=== PATIENT | male | born 1945 | race Caucasian/White ===

== ENCOUNTER → 2020-05-26 01:38 | Outpatient (CLI) | payer MEDICARE, SELFPAY ==
[2020-05-26 20:12] LABS: SARS-CoV-2 RNA PCR Negative
== END ==
PROVIDERS: PCP Family Medicine; Visit Provider Internal Medicine Gastroenterology
DX: Z01.812 Encounter for preprocedural laboratory examination (principal); Z20.822 Contact with and (suspected) exposure to COVID-19
CPT/HCPCS: C9803; U0003; U0005

== ENCOUNTER 2020-05-29 00:50 | Day surgery (SDC) | payer MEDICARE, SELFPAY ==
[2020-05-15 11:58] VITALS: BMI 22.7
--- NOTE | 2020-05-29 10:10 | WPDANESEPPF ---
Anes - Initial Pre Proc Eval Procedure: Operation Date: 05/29/20 13:00 Proposed Procedures p Esophagogastroduodenoscopy - Willian Bob MD Date/Time: 05/29/20 10:10 Surgeon: Willian Bob MD Pre Op Diagnosis: dysphagia Patient Data Age: 74 Gender: M Height: 1.78 m Weight: 72 kg Allergies Allergy/AdvReac Type Severity Reaction Status Date / Time No Known Allergies Allergy Verified 05/29/20 11:49 Home Medications Medication Instructions Recorded Confirmed Type lisinopril 10 mg tablet 10 mg PO DAILY #30 tablet 11/29/19 05/15/20 Rx metoprolol succinate 25 mg 25 mg PO DAILY 04/01/20 05/15/20 History tablet,extended release 24 hr azelastine 205.5 mcg (0.15 %) 1 spray INTRANASAL BID #30 ml 04/11/20 05/15/20 Rx nasal spray ascorbic acid (vitamin C) 500 mg PO DAILY 05/15/20 05/15/20 History aspirin [Aspirin Child] 81 mg PO DAILY 05/15/20 05/15/20 History atorvastatin 40 mg PO HS 05/15/20 05/15/20 History fluoxetine 20 mg PO DAILY 05/15/20 05/15/20 History tadalafil [Cialis] 15 mg PO DAILY PRN 05/15/20 05/15/20 History tamsulosin [Flomax] 0.4 mg PO DAILY 05/15/20 05/15/20 History vit C-vit Q9-Y-pick-elderberry 2 tablet PO DAILY 05/15/20 05/15/20 History [Airborne Vits Zinc Elderberry] sildenafil (pulm.hypertension) 20 See Rx Instructions PO ONCE #90 05/22/20 Rx mg tablet tablet Patient hx anesthesia problems: none Family hx anesthesia problems: none PMFSH Past Medical History Medical History (Updated 05/29/20 @ 10:12 by Edvin Rausch MD) Abnormal fasting glucose Anemia CAD (coronary artery disease) Cardiomyopathy ef 38% Cellulitis of right forearm Chronic anticoagulation Chronic anxiety Chronic atrial fibrillation Chronic bilateral low back pain with bilateral sciatica Chronic neck pain Coronary artery disease involving [place] coronary artery of [place] heart without angina pectoris CVA (cerebrovascular accident due to intracerebral hemorrhage) Dysphagia Essential (primary) hypertension HLD (hyperlipidemia) HTN (hypertension) Hx TIA/stroke w/o resid Mixed hyperlipidemia Peripheral polyneuropathy Seasonal allergic rhinitis TIA (transient ischemic attack) Traumatic hematoma of right forearm Surgical History Surgical History (Updated 05/10/19 @ 09:53 by Vishnu Bar MD) H/O cardiac catheterization History of aortic valve replacement History of heart artery stent Family History Family History (System 04/09/19 @ 11:49 by Loretta Cottrell) Mother Diabetes mellitus Family history of cardiovascular disease, Onset Age: 59 Father Cerebrovascular accident, Onset Age: 70 Social History Social History Smoking packs per day: 2 Smoking cigarettes per day: 40.0 Years smoked: 20 Smoking pack-years: 40.00 Smoking status: Former smoker Tobacco type: cigarettes Alcohol intake: current Substance use: never Substance use type: does not use Living arrangements: with family Gender identity (if verbalized by the patient): Male Spiritual care concerns: No Anes - Eval Final PreProcedure Day of Procedure 05/29/20 10:10 Patient weight: normal Heart: regular rate and rhythm Lungs: clear to auscultation and normal air movement Airway: Mallampati scale class II Neurological: alert and oriented Last oral intake: >/= 8 hours ASA classification: IV Emergent: no Anesthetic plan: proceed Anesthesia type and monitoring: general GIVS Informed Consent: The patient's anesthetic plan and its attendant risks and benefits were discussed with the patient/family/POA. Questions were solicited and answers provided to the satisfaction of the patient/family/POA.
[2020-05-29] MEDS: LACTATED RINGERS 1,000 ML 150 ML IV CONT (11:56)
[2020-05-29] MEDS: AMPICILLIN 2 GM/NS 100 ML 2 GM/100 ML BAG IVPB (11:57)
[2020-05-29 12:01] VITALS: BP 139/72; PULSE 64; RESP 16; TEMP 36.2; O2SAT 97; BMI 22.7
[2020-05-29] MEDS: GENTAMICIN 80MG/SOD CHL 50 ML 80 MG/50 ML BAG 100 MG IVPB (12:53)
--- NOTE | 2020-05-29 13:21 | PM.HPGS ---
History of Present Illness History of Present Illness Consent: Risks, benefits, and alternatives have been discussed and questions answered. Patient agrees to proceed with procedure. Chief complaint: dysphagia Narrative: Kevin Dykes is a 74 year old male with dysphagia, never had egd Review of Systems Constitutional: Constitutional: Denies headache(s) and Denies weakness Eyes: Eyes: Denies blurry vision ENT: Reports Normal hearing present, Denies headache(s) and Denies neck pain Cardiovascular: Cardiovascular: Denies chest pain and Denies dyspnea Respiratory: Respiratory: Denies dyspnea Gastrointestinal: Gastrointestinal: Reports no additional gastrointestinal complaints Genitourinary: Genitourinary: Denies dysuria Musculoskeletal: Musculoskeletal: Denies neck pain Integumentary/Breasts: Skin/Breast: Denies dry skin Neurologic: Reports Normal hearing present, Denies headache(s) and Denies weakness Psychiatric: Psychiatric: Denies anxiety Endocrine: Endocrine: Denies change in body appearance Hematologic/Lymphatic: Hematologic/Lymphatic: Denies easy bleeding Allergic/Immunologic: Allergic/Immunologic: Denies urticaria PMFSH Past Medical History Medical History (Updated 05/29/20 @ 10:12 by Edvin Rausch MD) Abnormal fasting glucose Anemia CAD (coronary artery disease) Cardiomyopathy ef 38% Cellulitis of right forearm Chronic anticoagulation Chronic anxiety Chronic atrial fibrillation Chronic bilateral low back pain with bilateral sciatica Chronic neck pain Coronary artery disease involving [place] coronary artery of [place] heart without angina pectoris CVA (cerebrovascular accident due to intracerebral hemorrhage) Dysphagia Essential (primary) hypertension HLD (hyperlipidemia) HTN (hypertension) Hx TIA/stroke w/o resid Mixed hyperlipidemia Peripheral polyneuropathy Seasonal allergic rhinitis TIA (transient ischemic attack) Traumatic hematoma of right forearm Surgical History Surgical History (Updated 05/10/19 @ 09:53 by Vishnu Bar MD) H/O cardiac catheterization History of aortic valve replacement History of heart artery stent Family History Family History (System 04/09/19 @ 11:49 by Loretta Cottrell) Mother Diabetes mellitus Family history of cardiovascular disease, Onset Age: 59 Father Cerebrovascular accident, Onset Age: 70 Social History Social History Smoking packs per day: 2 Smoking cigarettes per day: 40.0 Years smoked: 20 Smoking pack-years: 40.00 Smoking status: Former smoker Tobacco type: cigarettes Alcohol intake: current Substance use: never Substance use type: does not use Living arrangements: with family Gender identity (if verbalized by the patient): Male Spiritual care concerns: No Meds Home Medications and Allergies Home Medications Medication Instructions Recorded Confirmed Type lisinopril 10 mg tablet 10 mg PO DAILY #30 tablet 11/29/19 05/15/20 Rx metoprolol succinate 25 mg 25 mg PO DAILY 04/01/20 05/15/20 History tablet,extended release 24 hr azelastine 205.5 mcg (0.15 %) 1 spray INTRANASAL BID #30 ml 04/11/20 05/15/20 Rx nasal spray ascorbic acid (vitamin C) 500 mg PO DAILY 05/15/20 05/15/20 History aspirin [Aspirin Child] 81 mg PO DAILY 05/15/20 05/15/20 History atorvastatin 40 mg PO HS 05/15/20 05/15/20 History fluoxetine 20 mg PO DAILY 05/15/20 05/15/20 History tadalafil [Cialis] 15 mg PO DAILY PRN 05/15/20 05/15/20 History tamsulosin [Flomax] 0.4 mg PO DAILY 05/15/20 05/15/20 History vit C-vit B8-J-wezz-elderberry 2 tablet PO DAILY 05/15/20 05/15/20 History [Airborne Vits Zinc Elderberry] sildenafil (pulm.hypertension) 20 See Rx Instructions PO ONCE #90 05/22/20 Rx mg tablet tablet Allergies Allergy/AdvReac Type Severity Reaction Status Date / Time No Known Allergies Allergy Verified 05/29/20 11:49
[2020-05-29 13:43] VITALS: BP 155/75; PULSE 34; RESP 20; O2SAT 98
[2020-05-29 13:53] VITALS: BP 148/88; PULSE 48; RESP 18; O2SAT 95
[2020-05-29 14:03] VITALS: BP 151/97; PULSE 41; RESP 21; O2SAT 95
== END 2020-05-29 14:19 | disposition home or self-care (01) ==
PROVIDERS: PCP Family Medicine; Visit Provider Internal Medicine Gastroenterology
PROC: 0DJ08ZZ Inspection of Upper Intestinal Tract, Via Natural or Artificial Opening Endoscopic (ICD-10-PCS; CPT 43235; principal; 2020-05-29 13:00)
DX: R13.10 Dysphagia, unspecified (principal); K44.9 Diaphragmatic hernia without obstruction or gangrene; I48.20 Chronic atrial fibrillation, unspecified; I25.10 Atherosclerotic heart disease of native coronary artery without angina pectoris; I42.9 Cardiomyopathy, unspecified; I10 Essential (primary) hypertension; E78.2 Mixed hyperlipidemia; G62.9 Polyneuropathy, unspecified; D64.9 Anemia, unspecified; Z86.73 Personal history of transient ischemic attack (TIA), and cerebral infarction without residual deficits; Z79.82 Long term (current) use of aspirin; Z95.4 Presence of other heart-valve replacement; Z95.5 Presence of coronary angioplasty implant and graft; Z87.891 Personal history of nicotine dependence
CPT/HCPCS: 43239; 88305; C9803; J0290; J1580; J2704; J7120; U0003; U0005

== ENCOUNTER 2023-06-15 00:30 | Day surgery (SDC) | payer MEDICARE, SELFPAY ==
[2023-05-31 13:42] VITALS: BMI 23.1
--- NOTE | 2023-06-01 11:53 | PC.NURSE ---
Request for cardiology clearance faxed to [facility]
--- NOTE | 2023-06-03 13:48 | PC.NURSE ---
Spoke with _patient regarding medication _eliquis_. Pt. verbalizes understanding that the last dose of _eliquis__ is to be taken on __06/02/2023 and the Endoscopist will instruct them when to restart after the procedure.
[2023-06-15 07:24] VITALS: BP 127/86; PULSE 62; RESP 20; TEMP 36.4; O2SAT 100; BMI 21.3
[2023-06-15] MEDS: GENTAMICIN 80MG/SOD CHL 50 ML 80 MG/50 ML BAG 100 MG IVPB (07:28)
--- NOTE | 2023-06-15 08:10 | WPDANESEPPF ---
Anes - Initial Pre Proc Eval Procedure: Operation Date: 06/15/23 08:30 Proposed Procedures p Screening Colonoscopy - Willian Bob MD Date/Time: 06/15/23 08:10 Surgeon: Willian Bob MD Pre Op Diagnosis: neoplasm screening Patient Data Age: 78 Gender: M Height: 1.78 m Weight: 67.5 kg Last Vital Signs Temp 97.6 F 06/15/23 07:24 Pulse 62 06/15/23 07:24 Resp 20 06/15/23 07:24 BP 127/86 06/15/23 07:24 Pulse Ox 100 06/15/23 07:24 O2 Del Method Room Air 06/15/23 07:24 Allergies Allergy/AdvReac Type Severity Reaction Status Date / Time No Known Allergies Allergy Verified 06/15/23 07:21 Home Medications Medication Instructions Recorded Confirmed Type ascorbic acid (vitamin C) 500 mg 500 mg PO DAILY 05/15/20 06/15/23 History tablet aspirin 81 mg chewable tablet 81 mg PO DAILY 05/15/20 06/15/23 History vit C 65 mg-D3 3.15 mcg-vit E 3.35 2 tablet PO DAILY 05/15/20 06/15/23 History mg-zinc 1 mg-elderberry chew tablet (Airborne Vits Zinc Elderberry) apixaban 5 mg tablet (Eliquis) 5 mg PO BID 10/30/21 06/15/23 History tamsulosin 0.4 mg capsule 0.4 mg PO DAILY #90 caps 08/05/22 06/15/23 Rx finasteride 5 mg tablet (Proscar) 5 mg PO DAILY #30 tabs 09/13/22 06/15/23 Rx metoprolol succinate 25 mg 25 mg PO . q.h.s. #90 tabs 02/04/23 06/15/23 Rx tablet,extended release 24 hr azelastine 205.5 mcg (0.15 %) 1 spray intranasal BID #30 mL 03/14/23 06/15/23 Rx nasal spray atorvastatin 40 mg tablet 40 mg PO HS #90 tabs 05/25/23 06/15/23 Rx lisinopril 10 mg tablet 10 mg PO . q.a.m. #30 tabs 05/25/23 06/15/23 Rx Patient hx anesthesia problems: none Family hx anesthesia problems: none Results Review: All pre-operative results and documents have been reviewed as part of the pre-operative evaluation. [facility] Past Medical History Medical History (Updated 03/23/23 @ 10:37 by Vishnu Bar MD) Abnormal fasting glucose Fasting glucose 109 on 08/09/2022 with hemoglobin A1c 6.1. Anemia At low risk for fall BMI 21.0-21.9, adult BMI 22.0-22.9, adult BMI 23.0-23.9, adult BPH without obstruction/lower urinary tract symptoms treated by urologist PSA 2.9 on 08/04/2021. CAD (coronary artery disease) Cardiomyopathy ef 38%. ejection fraction 20% on echocardiogram 05/03/2019. Ejection fraction 52% on 04/22/2020. ejection fraction 40-45% January,. Cellulitis of right forearm Chronic anticoagulation Chronic anxiety Chronic atrial fibrillation Chronic bilateral low back pain with bilateral sciatica Chronic neck pain Colon cancer screening Coronary artery disease involving [place] coronary artery of [place] heart without angina pectoris Cardiac catheterization 2020 with 40% lesion of the LAD and 60% lesion of the ramus treated medically CVA (cerebrovascular accident due to intracerebral hemorrhage) No residual. TIA ? Dermatitis (~10/2020) Dysphagia Encounter for prostate cancer screening PSA 2.9 on 08/04/2021. PSA 2.97 on 08/09/2022. Essential (primary) hypertension Herpes zoster (~10/2020) right face HTN (hypertension) Hx TIA/stroke w/o resid Mixed hyperlipidemia Total cholesterol 132, triglycerides 53, HDL 57, LDL 64 on 08/09/2022. Nocturia Peripheral polyneuropathy Plantar fasciitis of left foot Rosacea Seasonal allergic rhinitis Traumatic hematoma of right forearm Trigger finger, left middle finger Surgical History Surgical History (Updated 05/10/19 @ 09:53 by Vishnu Bar MD) H/O cardiac catheterization History of aortic valve replacement History of heart artery stent Family History Family History (System 04/09/19 @ 11:49 by Loretta Cottrell) Mother Diabetes mellitus Family history of cardiovascular disease, Onset Age: 59 Father Cerebrovascular accident, Onset Age: 70 Social History Social History (Updated 02/25/22 @ 10:14 by Yudith Ahuja MA) Smoking packs per day: 1.5 Smok
--- NOTE | 2023-06-15 08:13 | PM.HPGS ---
History of Present Illness History of Present Illness Consent: Risks, benefits, and alternatives have been discussed and questions answered. Patient agrees to proceed with procedure. Chief complaint: neoplasm screening Narrative: Kevin Dykes is a 78 year old male here for screening colonoscopy, last one about 15 years ago Review of Systems Review of Systems: All systems reviewed & are unremarkable except as noted in HPI and below PMFSH Past Medical History Medical History (Updated 03/23/23 @ 10:37 by Vishnu Bar MD) Abnormal fasting glucose Fasting glucose 109 on 08/09/2022 with hemoglobin A1c 6.1. Anemia At low risk for fall BMI 21.0-21.9, adult BMI 22.0-22.9, adult BMI 23.0-23.9, adult BPH without obstruction/lower urinary tract symptoms treated by urologist PSA 2.9 on 08/04/2021. CAD (coronary artery disease) Cardiomyopathy ef 38%. ejection fraction 20% on echocardiogram 05/03/2019. Ejection fraction 52% on 04/22/2020. ejection fraction 40-45% January,. Cellulitis of right forearm Chronic anticoagulation Chronic anxiety Chronic atrial fibrillation Chronic bilateral low back pain with bilateral sciatica Chronic neck pain Colon cancer screening Coronary artery disease involving [place] coronary artery of [place] heart without angina pectoris Cardiac catheterization 2020 with 40% lesion of the LAD and 60% lesion of the ramus treated medically CVA (cerebrovascular accident due to intracerebral hemorrhage) No residual. TIA ? Dermatitis (~10/2020) Dysphagia Encounter for prostate cancer screening PSA 2.9 on 08/04/2021. PSA 2.97 on 08/09/2022. Essential (primary) hypertension Herpes zoster (~10/2020) right face HTN (hypertension) Hx TIA/stroke w/o resid Mixed hyperlipidemia Total cholesterol 132, triglycerides 53, HDL 57, LDL 64 on 08/09/2022. Nocturia Peripheral polyneuropathy Plantar fasciitis of left foot Rosacea Seasonal allergic rhinitis Traumatic hematoma of right forearm Trigger finger, left middle finger Surgical History Surgical History (Updated 05/10/19 @ 09:53 by Vishnu Bar MD) H/O cardiac catheterization History of aortic valve replacement History of heart artery stent Family History Family History (System 04/09/19 @ 11:49 by Loretta Cottrell) Mother Diabetes mellitus Family history of cardiovascular disease, Onset Age: 59 Father Cerebrovascular accident, Onset Age: 70 Social History Social History (Updated 02/25/22 @ 10:14 by Yudith Ahuja MA) Smoking packs per day: 1.5 Smoking cigarettes per day: 30.0 Years smoked: 20 Smoking pack-years: 30.00 Smoking status: Former smoker Tobacco type: cigarettes Alcohol intake: current Drinks per week: 1 Substance use: never Substance use type: does not use Lack of Transportation: No Lack of Food: Never True Current Housing: I Have Housing Concerned About Future Housing: No Difficulty Paying Gas/Electric Bills: No Difficulty Paying for Meds: No Currently Unemployed: No Education: Trade/Vocational Certificate Difficulty w/ Childcare or Family Care: No Living arrangements: with family Gender identity (if verbalized by the patient): Male Spiritual care concerns: No Meds Home Medications and Allergies Home Medications Medication Instructions Recorded Confirmed Type ascorbic acid (vitamin C) 500 mg 500 mg PO DAILY 05/15/20 06/15/23 History tablet aspirin 81 mg chewable tablet 81 mg PO DAILY 05/15/20 06/15/23 History vit C 65 mg-D3 3.15 mcg-vit E 3.35 2 tablet PO DAILY 05/15/20 06/15/23 History mg-zinc 1 mg-elderberry chew tablet (Airborne Vits Zinc Elderberry) apixaban 5 mg tablet (Eliquis) 5 mg PO BID 10/30/21 06/15/23 History tamsulosin 0.4 mg capsule 0.4 mg PO DAILY #90 caps 08/05/22 06/15/23 Rx finasteride 5 mg tablet (Proscar) 5 mg PO DAILY #30 tabs 09/13/22 06/15/23 Rx metoprolol succinate 25 mg 25 mg PO .
[2023-06-15] MEDS: AMPICILLIN 2 GM/NS 100 ML 2 GM/100 ML BAG IVPB (08:15)
[2023-06-15] MEDS: LACTATED RINGERS 1,000 ML 150 ML IV CONT (08:30)
[2023-06-15 08:34] VITALS: BP 89/54; PULSE 55; RESP 23; O2SAT 97
[2023-06-15 08:44] VITALS: BP 90/55; PULSE 53; RESP 17; O2SAT 98
[2023-06-15 09:02] VITALS: BP 102/61; PULSE 55; RESP 23; O2SAT 96
== END 2023-06-15 09:02 | disposition home or self-care (01) ==
PROVIDERS: PCP Family Medicine; Visit Provider Internal Medicine Gastroenterology
PROC: 0DJD8ZZ Inspection of Lower Intestinal Tract, Via Natural or Artificial Opening Endoscopic (ICD-10-PCS; CPT 45378; principal; 2023-06-15 08:30)
DX: Z12.11 Encounter for screening for malignant neoplasm of colon (principal); K64.8 Other hemorrhoids; I48.20 Chronic atrial fibrillation, unspecified; I25.10 Atherosclerotic heart disease of native coronary artery without angina pectoris; I42.9 Cardiomyopathy, unspecified; I10 Essential (primary) hypertension; D64.9 Anemia, unspecified; N40.0 Benign prostatic hyperplasia without lower urinary tract symptoms; F41.9 Anxiety disorder, unspecified; E78.2 Mixed hyperlipidemia; G62.9 Polyneuropathy, unspecified; Z86.73 Personal history of transient ischemic attack (TIA), and cerebral infarction without residual deficits; Z87.891 Personal history of nicotine dependence; Z79.01 Long term (current) use of anticoagulants; Z95.4 Presence of other heart-valve replacement
CPT/HCPCS: G0121; J0290; J1580; J1596; J2704; J7120

== ENCOUNTER 2023-09-30 07:18 | Outpatient (CLI) | payer MEDICARE, SELFPAY ==
[2023-09-30 07:52] LABS: Add Urine Microscopic? NO; Appearance Urine Clear (Clear); Bilirubin Urine Negative (Negative); Blood Urine Negative (Negative); Color Urine Yellow (Yellow); Glucose Urine UA Negative (Negative); Ketones Urine Negative (Negative); Leukocyte Esterase Ur Negative LEU/UL (Negative); Nitrate Urine Negative (Negative); Protein Urine Negative (Negative); Specific Grav Ur 1.022 (1.001-1.035); pH Urine 5.5 (5.0-9.0)
[2023-09-30 08:06] LABS: Hemoglobin A1C 5.9 % (<5.7)
[2023-09-30 16:22] LABS: Alanine Aminotransferase 25 U/L (6-50); Albumin Level 4.1 g/dL (3.5-5.1); Alkaline Phosphatase 55 U/L (38-126); Anion Gap 8 mmol/L (4-12); Aspartate Amino Transferase 27 U/L (17-59); Bilirubin,Total 1.4 mg/dL (0.2-1.3); Blood Urea Nitrogen 23 mg/dL (9-20); Calcium 9.3 mg/dL (8.4-10.2); Carbon Dioxide 27 mmol/L (22-30); Chloride 106 mmol/L (98-107); Cholesterol 145 mg/dL (0-200); Estimated Glomerular Filt Rate > 60; Glucose 105 mg/dL (65-110); HDL Direct 51 mg/dL; Potassium 4.7 mmol/L (3.4-5.0); Sodium 141 mmol/L (137-145); Triglycerides 89 mg/dL (<150)
[2023-09-30 16:41] LABS: LDL Cholesterol Direct 71 mg/dL
[2023-09-30 16:53] LABS: Prostate Specific Antigen 1.6 ng/mL (< OR = 4.0)
== END 2023-09-30 07:19 | disposition home or self-care (01) ==
LOC: ANHLAB 07:24
PROVIDERS: PCP Family Medicine; Visit Provider Family Medicine
DX: Z12.5 Encounter for screening for malignant neoplasm of prostate (principal); E78.2 Mixed hyperlipidemia; R73.01 Impaired fasting glucose
CPT/HCPCS: 36415; 80048; 80061; 80076; 81003; 83036; 84153; 84443; G0103

== ENCOUNTER 2024-08-14 13:37 | Emergency (ER) | payer MEDICARE, SELFPAY ==
[2024-08-14 13:43] VITALS: BP 121/81; PULSE 74; RESP 18; TEMP 36.2; O2SAT 98
--- OUTSIDE RECORDS SUMMARY | 2024-08-14 14:15 | XMS_ITS | Encounter Summary ---
Author Organization [facility] Address [address] [place] [address] Care Team Providers Care Weight Caller Name Role Phone Vishnu Bar MD Primary Care Provider [phone] Reason for Visit * Reason Comments Echo Interpretation Encounter Details Date Type Department Care Team (Late st Contact Info) Description 08/14/2024 11:00 AM CDT Office Visit [facility] - Cardiology [address] [phone] Lizette Dwyer MD [facility] [address] [address] LV (left ventricular) mural thrombus (Primary Dx) Social History Tobacco Use Types Packs/Day Years Used Date Smoking Tobacco: Former Cigarettes Q uit: 1986 Smokeless Tobacco: Never Alcohol Use Standard Drinks/Week Comments Yes 1 (1 standard drink = 0.6 oz pur e alcohol) 4 beers per month Sex and Gender Information Value Date Recorded Sex Assigned at Not on file 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 Answer Date of Assessment Author No 05/07/2019 3:25 PM CDT Deion Theodore RN * Is person blind or have serious difficulty seeing? Answer Date of Assessment Author No 05/07/2019 3:25 PM CDT Deion Theodore RN * Does person have serious difficulty walking/climbing stairs? Answer Date of Assessment Author No 05/07/2019 3:25 PM CDT Deion Theodore RN * Does person have difficulty dressing/bathing? Answer Date of Assessment Author No 05/07/2019 3:25 PM CDT Deion Theodore RN * Does person have difficulty doing errands alone? Answer Date of Assessment Author No 05/07/2019 3:25 PM CDT Deion Theodore RN documented as of this encounter Mental Status * Does person have difficulty concentrating/remembering/making decisions? Answer Entry Date Author No 05/07/2019 3:25 PM CDT Deion Theodore RN documented in this encounter Patient Instructions * Patient Instructions* Lizette Dwyer MD - 08/14/2024 11:30 AM CDT Patient directed to go to ER documented in this encounter Progress Notes * Lizette Dwyer MD - 08/14/2024 11:10 AM CDT I had the pleasure of seeing Kevin Dykes in my office today. Kevin Dykes is a 79 year oldmale with a history of severe AI s/p 25 mm Magna Ease bioprosthetic valve, LV aneurysm s/p FREDO repair 2019, post op afib who presents for follow up. He tells me Nov 06 he had what he considered a TIAwith symptoms of numbness of left shoulder that lasted one hour. Did not seek medical attention at that time. On January 05 he had numbness of left side of face and shoulder for which he also did notseek medical attention. Has occasional dizziness when arising from seated position Current Outpatient Medications Medication Sig Ascorbic Acid (VITAMIN C PO) aspirin (ASPIRIN) 81 MG chew tablet Take 1 tablet by mouth once daily atorvastatin (LIPITOR) 40 MG tablet Take 1 tablet by mouth at bedtime ELDERBERRY PO (Patient not taking: Reported on 08/14/2024) finasteride (Proscar) 5 MG tablet Take 1 (one) tablet by mouth once daily lisinopril (Prinivil; Zestril) 20 MG tablet Take 1 (one) tablet by mouth once daily metoprolol succinate XL 24hr (Toprol XL) 25 MG tablet TAKE 1 TABLET BY MOUTH EVERY DAY tadalafil (Cialis) 20 MG tablet Take 1 (one) tablet by mouth once as needed tamsulosin (FLOMAX) 0.4 MG capsule Take 1 capsule by mouth once daily At the same time every day after a meal. No current facility-administered medications for this visit. Review of Systems: As per HPI; otherwise negative. BP 138/84 Pulse 67 Ht 1.778 m (5' 10) Wt 69.9 kg (154 lb) SpO2 93% General: AOx3, NAD HEENT: Atraumatic, anicteric sclera, midline trachea CV: RRR without murmurs/gallops. Normal S1S2. No JVD or carotid bruits. Respiratory: CTA (B) Abdomen: Soft, Nontender, Nondistended, +BS Musculoskeletal: Upper and lower extremities warm, no edema, no kyphoscoliosis Vascular: radial pulses +2 bilaterally Skin: warm and dry, no rashes, no suspicious lesions Neurologic: nonfocal Imaging studies: Echo in office today shows large apical LV thrombus Laboratory studies: Recent Labs Component Name 03/24/23 0830 11/10/21 1242 05/07/19 0417 05/06/19 0425 05/05/19 0537 04/30/19 0855 04/26/19 1316 SODIUM - - - - - - 142 NA - - 138 137 132* - - POTASSIUM - - 4.2 3.8 4.2 - 4.7 CHLORIDE - - - - - - 105 CO2 - - 26 24 26 - 24 BUN - - 25 35* 39* - 19 CREATININE - - 1.2 1.3* 1.4* - 1.12 GLUCOSE - - 97 101 123* - 178* CALCIUM - - 8.3* 8.8 8.8 - 9.5 ALT - - 17 12 13 - - ALKPHOS - - 51 51 52 - - AST - - 22 25 27 - - EGFR >90 >90 60* 54* 50* - 65 EGFRAFR - - - - - - 75 - = values in this interval not displayed. Recent Labs Component Name 01/12/19 1004 CHOL 117 TRIG 82 HDL 45 LDLCALC 56 Assessment: Severe AI s/p 25 mm Magna Ease bioprosthetic AVR LV aneurysm s/p FREDO repair 2019 Post op atrial fibrillation Hypertension Plan: Severe AI s/p 25 mm Magna Ease bioprosthetic AVR: Echo today shows good valve function. Knows to take antibiotics for dental visit. LV aneurysm s/p FREDO Repair: Has recurrence of large LV apical thrombus. I am not comfortable treating him with Eliquis for this. Will admit to hospital for IV heparin bridge to warfarin. He will got to his local ER as he does not want to leave his without a car. Post op afib: No recurrence to date HTN: Well controlled BP at home. Lizette Dwyer M.D. F.A.C.C. shank scourer [facility] documented in this encounter Plan of Treatment Not on file documented as of this encounter Visit Diagnoses Diagnosis LV (left ventricular) mural thrombus- Primary Acute myocardial infarction, unspecified site, episode of care unspecified documented in this encounter Care Teams Weight Caller Relationship Specialty Start Date End Date Vishnu Bar MD PCP - General Family Medicine 01/11/19 documented as of this encounter
--- OUTSIDE RECORDS SUMMARY | 2024-08-14 14:15 | XMS_ITS | Referral Summary ---
Author Organization [facility] [address] Address [address] [place] [address] Care Team Providers Care Databases Software Consultant Name Role Phone Vishnu Bar MD Primary Care Provider [phone] Allergies Active Allergy Reactions Criticality Noted Date Comments Iodine And Iodide Containing Products Edema,Redness Medium Medications clopidogrel (PLAVIX) 75 mg tablet take 1 by Oral route every day 0 0 06/20/2014 Active enalapril (VASOTEC) 5 mg tablet take 1 tablet by oral route 2 times every day 0 0 06/20/2014 Active aspirin (ASPIR-81) 81 mg tablet take 1 Tablet by oral route every day 0 0 06/20/2014 Active metoprolol XL (TOPROL-XL) 25 mg 24 hr tablet take 1 tablet by oral route every day 0 0 06/20/2014 Active atorvastatin (LIPITOR) 80 mg tablet take 1 tablet by oral route every day 0 0 06/20/2014 Active azelastine 0.15 % (205.5 mcg) spray,non-aeroso l daily. 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 Gender Identity Not on file Sexual Orientation Not on file Last Filed Vital Signs Vital Sign Reading Time Taken Comments Blood Pressure 136/70 12/14/2016 9:58 AM CDT Pulse 60 12/14/2016 9:58 AM CDT Temperature - - Respiratory Rate - - Oxygen Saturation 97% 12/14/2016 9:58 AM CDT Inhaled Oxygen Concentration - - Weight 73 kg (161 lb) 12/14/2016 9:58 AM CDT Height 177.8 cm (5' 10) 12/14/2016 9:58 AM CDT Body Mass Index 23.1 12/14/2016 9:58 AM CDT Plan of Treatment Not on file Insurance [place]ON[place]RIST[address] [place], [place] [address] MED[facility] [place] [address] Care Teams Databases Software Consultant Relationship Specialty Start Date End Date Vishnu Bar MD [address] [address] PCP - General 06/03/16
--- OUTSIDE RECORDS SUMMARY | 2024-08-14 14:15 | XMS_ITS | Encounter Summary ---
Author Organization [facility] Address [address] [facility] [place] [address] Care Team Providers Care Maori Physiotherapist Name Role Phone Vishnu Bar MD Primary Care Provider [phone] Encounter Details Date Type Department Care Team (Latest Contact Info) Description 08/14/2024 Travel Social History Tobacco Use Types Packs/Day Years Used Date Smoking Tobacco: Former Cigarettes Q uit: 1985 Smokeless Tobacco: Never Alcohol Use Standard Drinks/Week Comments Yes 1 (1 standard drink = 0.6 oz pur e alcohol) 4 beers per month Sex and Gender Information Value Date Recorded Sex Assigned at Not on file 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 Answer Date of Assessment Author No 05/07/2019 3:25 PM Deion Shah RN * Is person blind or have serious difficulty seeing? Answer Date of Assessment Author No 05/07/2019 3:25 PM Deion Shah RN * Does person have serious difficulty walking/climbing stairs? Answer Date of Assessment Author No 05/07/2019 3:25 PM Deion Shah RN * Does person have difficulty dressing/bathing? Answer Date of Assessment Author No 05/07/2019 3:25 PM Deion Shah RN * Does person have difficulty doing errands alone? Answer Date of Assessment Author No 05/07/2019 3:25 PM CDT Deion Theodore RN documented as of this encounter Mental Status * Does person have difficulty concentrating/remembering/making decisions? Answer Entry Date Author No 05/07/2019 3:25 PM Deion Shah RN documented in this encounter Plan of Treatment Not on file documented as of this encounter Visit Diagnoses Not on filedocumented in this encounter Care Teams Maori Physiotherapist Relationship Specialty Start Date End Date Vishnu Bar MD PCP - General Family Medicine 01/11/19 documented as of this encounter
--- OUTSIDE RECORDS SUMMARY | 2024-08-14 14:15 | XMS_ITS | Encounter Summary ---
Author Organization [facility] Address [address] [place] [address] Care Team Providers Care Grocery Packer Name Role Phone Vishnu Bar MD Primary Care Provider [phone] Reason for Visit * Cardiac (Routine) - Closed Specialty Diagnoses / Procedures Referred By Contac t Referred To Contact Cardiology Diagnoses S/P AVR Procedures ECHO COMPLETE TN TTE W/DOPPLER, COMPLETE TN TTE W/O DOPPLER, COMPLETE Lizette Dwyer MD [address] [address] Phone: tel: fax: [facility] - Echosonography [address] [address] Phone: tel: fax: Referral ID Status Reason Start Date Expiration Date Visits Re quested Visits Authorized [id number] Closed 08/16/2023 08/15/2024 1 1 Encounter Details Date Type Department Care Team (Late st Contact Info) Description 08/14/2024 10:00 AM CDT Ancillary Procedure [facility] - Echosonography [address] [address] S/P AVR Social History Tobacco Use Types Packs/Day Years Used Date Smoking Tobacco: Former Cigarettes Q uit: 1985 Smokeless Tobacco: Never Alcohol Use Standard Drinks/Week Comments Yes 1 (1 standard drink = 0.6 oz pur e alcohol) 4 beers per month Sex and Gender Information Value Date Recorded Sex Assigned at Not on file 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 Answer Entry Date Author No 05/07/2019 3:25 PM GIULIANOT Deion Theodore RN documented in this encounter Plan of Treatment Not on file documented as of this encounter Procedures Procedure Name Priority Date/Time Associated Diagnosis Comments ECHO COMPLETE W CONTRAST Routine 08/14/2024 11:00 AM CDT S/P AVR documented in this encounter Results * ECHO COMPLETE W CONTRAST (08/14/2024 11:00 AM CDT) IVSd 2D 1.124 cm [facility] CV FUJ I PACS LVIDd 5.353 cm [facility] CV FUJ I PACS LVIDs 3.981 cm [facility] CV FUJ I PACS LVOT diam 2.352 cm [facility] CV FUJ I PACS LVPWd 1.09 cm [facility] CV FUJ I PACS LV biplane EF 50.285 % [facility] CV FUJI PACS LV A2C EF 50.994 % [facility] CV FUJ I PACS LV A4C EF 49.07 % [facility] CV [facility] I PACS LV EDV A2C 160.719 ml SSM CV FU JI PACS LV EDV A4C 149.158 ml [facility] CV FU JI PACS LV ESV A2C 78.761 ml S[facility] CV FU JI PACS LV ESV A4C 75.965 ml [facility] CV FU JI PACS LVOT pk grad 2.529 mmHg [facility] pk antolin 79.522 cm/s [facility] CV F UJI PACS LVOT VTI 16.305 cm [facility] CV [facility] I PACS RVIDd 3.141 cm [facility] CV [facility] I PACS RVOT pk antolin 70.43 cm/s S[facility] CV F UJI PACS RVOT VTI 13.561 cm [facility] CV [facility] I PACS LA vol BP 62.64 ml [facility] CV [facility] I PACS RA area 19.717 cm [facility] AV area pk antolin 1.203 cm [facility] AV area cont VTI 1.39 cm [facility] AV pk grad 33.02 mmHg S[facility] CV FU JI PACS AV mn grad 21.489 mmHg S[facility] CV FU JI PACS AV pk antolin 287.317 cm/s [facility] CV [facility] I PACS AV VTI 50.965 cm [facility] CV [facility] I PACS MV A pk antolin 55.702 cm/s SSM CV F U PACS MV E pk antolin 28.359 cm/s SSM CV F U PACS MV E' lateral antolin 4.336 cm/s SS M [facility] MV mn grad 0.474 mmHg S[facility] CV FU PACS MV VTI 21.216 cm [facility] CV [facility] I PACS PV pk antolin 89.795 cm/s [facility] CV [facility] I PACS TAPSE 1.751 cm [facility] CV [facility] I PACS TR pk antolin 232.484 cm/s [facility] CV [facility] I PACS Ascending aorta 3.708 cm [facility] IVC Diam Expiration 1.768 cm [facility] Sinus of Valsalva 4.116 cm SS M [facility] P[facility] AV area index 0.749 cm /m [facility] P[facility] LA vol index 0.034 l/m S[facility] CV FUJI PACS Dimensionless Index 0.32 unitless SSM CV FUJI PACS Myocardial strain charge 2 unitless SSM CV FUJI PACS Anatomical Region Laterality Modality Ultrasound 08/14/2024 10:3 8 AM CDT Narrative 08/14/2024 12:01 PM CDT Summary * Status post FREDO repair (endoventricular patch plasty). * The left ventricle is mildly dilated, with mildly reduced systolic function and an estimated ejection fraction of 50 % by biplane method of disks. Left ventricular wall motion is abnormal (please refer to diagram). 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 * The left ventricular diastolic function is consistent with grade I diastolic dysfunction. * Right ventricle is normal in size with normal systolic function. * The pulmonary artery systolic pressure is normal, 25 mmHg. * By history there is a 25mm bioprosthetic valve in the aortic position. The valve is well seated, the leaflets are well visualized, with trace regurgitation, and no paravalvular regurgitation. The mean gradient is 21 mmHg, which is within normal limits. 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 Patient Info Name: Kevin Dykes Age: 79 years : 1945 Gender: Male Ht: 70 in Wt: 154 lb BSA: 1.86 m2 HR: 50 bpm BP: 130 / 90 mmHg Exam Date: 08/14/2024 10:38 AM Patient Status: O Study [facility] Exam Type: ECHO COMPLETE W CONTRAST Indications Z95.2 - S/P AVR Procedure(s) * A complete 2D, color Doppler, and spectral Doppler transthoracic echocardiogram was performed. * An Ultrasound Enhancing Agent (UEA) was utilized to enhance endocardial definition and opacify the left ventricle. Contrast/Agitated Saline Contrast / Saline: Definity Amount: 0.50 ml Staff Referring Physician: Lizette Dwyer MD Ordering Provider: Lizette Dwyer MD Manager Office: [facility] Left Ventricle Status post FREDO repair (endoventricular patch plasty). The left ventricle is mildly dilated. Left ventricular systolic function is mildly reduced with an estimated ejection fraction of 50 % by biplane method of disks. The left ventricular mass is mildly increased with eccentric hypertrophy. Left ventricular segmental wall motion is abnormal (please refer to diagram). The left ventricular diastolic function is consistent with grade I diastolic dysfunction. 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 Right Ventricle The right ventricle is normal in size. Right ventricular systolic function is normal. Left Atrium The left atrium is normal in size with a left atrial volume index of 34 ml/m2 by BP MOD. Right Atrium The right atrium is normal in size. Atrial Septum Intact interatrial septum visualized by 2D and color Doppler imaging. Aortic Valve By history there is a 25mm bioprosthetic valve in the aortic position. The valve is well seated, the leaflets are well visualized, with trace regurgitation, and no paravalvular regurgitation. The mean gradient is 21 mmHg, which is within normal limits. There is no clinically significant bioprosthetic valve aortic valve stenosis with a peak velocity of 287.3 cm/s, mean gradient of 21 mmHg, and aortic valve area of 1.39 cm2. Pulmonic Valve The pulmonic valve is not well visualized, but grossly normal. There is no pulmonic valve stenosis. There is mild pulmonic regurgitation. Mitral Valve The mitral valve is grossly normal. There is no mitral valve stenosis. There is trace mitral valve regurgitation. Tricuspid Valve The tricuspid valve is normal. There is no tricuspid valve stenosis. There is mild tricuspid valve regurgitation. The pulmonary artery systolic pressure is normal, 25 mmHg. Inferior Vena Cava The inferior vena cava is normal in size (< 2.1 cm). There is > 50% collapse of the IVC upon inspiration with an estimated right atrial pressure of 3 mmHg. Pericardium/Pleural There is no pericardial effusion. 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 The ascending aorta is normal in size measuring 3.7 cm with an index of 2.0 cm/m2. Wall Motion Scoring Index: 1.59 Measurements Left Ventricular Outflow Tract Name Value Normal LVOT 2D LVOT Diameter 2.4 cm LVOT Area 4.3 cm2 LVOT Doppler LVOT Peak Velocity 0.8 m/s LVOT Peak Gradient 3 mmHg LVOT Mean Velocity 52.89 cm/s LVOT Mean Gradient 1 mmHg LVOT VTI 16.3 cm LVOT VTI/AV VTI Ratio 0.3 LVOT Stroke Volume 71 ml LVOT Stroke Volume Index 38 ml/m2 35-58 LVOT CO 3.5 l/min LVOT CI 1.9 l/min/m2 Pulmonic Valve Name Value Normal RVOT Doppler RVOT Peak Velocity 0.7 m/s RVOT Peak Gradient 2 mmHg RVOT Mean Gradient 1 mmHg PV Doppler PV Peak Velocity 0.9 m/s PV Peak Gradient 2 mmHg PV Mean Gradient 2 mmHg PV Accel Time 111.32 ms Mitral Valve Name Value Normal MV Doppler MV Peak Gradient 2 mmHg MV Mean Gradient 0 mmHg MV DI (VTI) 1.30 MV PHT 76 ms MV Area (PHT) 2.88 cm2 4.00-5.00 MV Area (Cont Eq VTI) 3.34 cm2 MV Diastolic Function MV E Peak Velocity 0.3 m/sec MV A Peak Velocity 0.6 m/sec MV E/A 0.5 MV Decel Time (PW) 607 ms MV A Wave Duration 186 ms MV Annular TDI MV Septal e' Velocity 6 cm/s >=8 MV E/e' (Septal) 5 <=8 MV Lateral e' Velocity 4 cm/s >=10 MV E/e' (Lateral) 7 <=8 MV e' Average 5 cm/s MV E/e' (Average) 6 Tricuspid Valve Name Value Normal TV Regurgitation Doppler TR Peak Velocity 2.3 m/s TR Peak Gradient 22 mmHg Estimated PAP/RSVP RA Pressure 3 mmHg <=5 PA Systolic Pressure 25 mmHg <35 RV Systolic Pressure 25 mmHg <36 TV Annular TDI TV Lateral Leslie s' Velocity 7 cm/s 10-19 Aorta Name Value Normal Ascending Aorta Sinus of Valsalva Diameter 4.1 cm 2.8-4.0 Sinus of Valsalva Index 2.2 cm/m2 1.3-2.1 Asc Ao Diameter 3.7 cm 2.2-3.8 Asc Ao Diameter Index 2.0 cm/m2 1.1-1.9 Venous Name Value Normal IVC/SVC IVC Diameter 1.8 cm <=2.1 Aortic Valve Name Value Normal AV Doppler AV Peak Velocity 2.87 m/s AV Peak Gradient 33 mmHg AV Mean Gradient 21 mmHg AV VTI 51 cm AV Area (Cont Eq VTI) 1.39 cm2 >=2.00 AV Area (Cont Eq Antolin) 1.20 cm2 AV DI (VTI) 0.32 AV DI (Antolin) 0.28 AV Regurgitation 2D LVOT Area 4.34 cm2 Ventricles Name Value Normal LV Dimensions 2D/MM IVS Diastolic Thickness (2D) 1.1 cm 0.6-1.0 LVID Diastole (2D) 5.4 cm 4.2-5.8 LVPW Diastolic Thickness (2D) 1.1 cm 0.6-1.0 LVID Systole (2D) 4.0 cm 2.5-4.0 LV Mass (2D Cubed) 233 g 88-224 LV Mass Index (2D Cubed) 126 g/m2 49-115 Relative Wall Thickness (2D) 0.41 <=0.42 LV Fractional Shortening/Ejection Fraction 2D/MM LV Fractional Shortening (2D) 26 % 25-43 LV EF (2D Teicholz) 50 % 52-72 LV Diastolic Volume (4C MOD) 149 ml LV EF (4C MOD) 49 % LV Diastolic Volume (2C MOD) 161 ml LV EF (2C MOD) 51 % LV Diastolic Volume (BP MOD) 157 ml 62-150 LV Diastolic Volume Index (BP MOD) 85 ml/m2 34-74 LV Systolic Volume (BP MOD) 78 ml 21-61 LV Systolic Volume Index (BP MOD) 42 ml/m2 11-31 LV EF (BP MOD) 50 % 52-72 LV Diastolic Length (4C) 8.8 cm LV Systolic Length (4C) 8.1 cm LV Stroke Volume (4C MOD) 73 ml RV Dimensions 2D/MM RVID Diastole (2D) 3.1 cm 2.5-3.5 TAPSE 1.8 cm >=1.7 Atria Name Value Normal LA Dimensions LA Volume (BP MOD) 63 ml LA Volume Index (BP MOD) 34 ml/m2 16-34 RA Dimensions RA Area (4C) 20 cm2 <=18 RA Area (4C) Index 11 cm2/m2 RA ESV (4C MOD) 59 ml 18-32 RA ESV Index (4C MOD) 32 ml/m2 16-34 Report Signatures Finalized by Ramonita Betancourt on 08/14/2024 12:01 PM Procedure Note Ramonita Betancourt MD - 08/14/2024 Summary * Status post FREDO repair (endoventricular patch plasty). * The left ventricle is mildly dilated, with mildly reduced systolic function and an estimated ejection fraction of 50 % by biplane method of disks. Left ventricular wall motion is abnormal (please refer todiagram). 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 * The left ventricular diastolic function is consistent with grade I diastolic dysfunction. * Right ventricle is normal in size with normal systolic function. * The pulmonary artery systolic pressure is normal, 25 mmHg. * By history there is a 25mm bioprosthetic valve in the aortic position.The valve is well seated, the leaflets are well visualized, with trace regurgitation, and no paravalvular regurgitation. The mean gradient is21 mmHg, which is within normal limits. * The aortic root at the sinus of Valsalva is dilated measuring 4.1 cmwith an index of 2.2 cm/m2. Patient Info Name: Kevin Dykes Age: 79 years : 1945 Gender: Male Ht: 70 in Wt: 154 lb BSA: 1.86 m2 HR: 50 bpm BP: 130 / 90 mmHg Exam Date: 08/14/2024 10:38 AM Patient Status: O Study [facility] Ex[facility] Type: ECHO COMPLETE W CONTRAST Indications Z95.2 - S/P AVR Procedure(s) * A complete 2D, color Doppler, and spectral Doppler transthoracic echocardiogram was performed. * An Ultrasound Enhancing Agent (UEA) was utilized to enhanceendocardial definition and opacify the left ventricle. Contrast/Agitated Saline Contrast / Saline: Definity Amount: 0.50 ml Staff Referring Physician: Lizette Dwyer MD Ordering Provider: Lizette Dwyer MD Manager Office: [facility]jon Left Ventricle Status post FREDO repair (endoventricular patch plasty). The leftventricle is mildly dilated. Left ventricular systolic function is mildly reduced withan estimated ejection fraction of 50 % by biplane method of disks. The left ventricular mass is mildly increased with eccentric hypertrophy. Left ventricular segmental wall motion is abnormal (please refer to diagram).The left ventricular diastolic function is consistent with grade I diastolic dysfunction. 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 Right Ventricle The right ventricle is normal in size. Right ventricular systolicfunction is normal. Left Atrium The left atrium is normal in size with a left atrial volume index of34 ml/m2 by BP MOD. Right Atrium The right atrium is normal in size. Atrial Septum Intact interatrial septum visualized by 2D and color Doppler imaging. Aortic Valve By history there is a 25mm bioprosthetic valve in the aortic position.The valve is well seated, the leaflets are well visualized, with trace regurgitation, and no paravalvular regurgitation. The mean gradient is21 mmHg, which is within normal limits. There is no clinically significant bioprosthetic valve aortic valve stenosis with a peak velocity of 287.3cm/s, mean gradient of 21 mmHg, and aortic valve area of 1.39 cm2. Pulmonic Valve The pulmonic valve is not well visualized, but grossly normal. There isno pulmonic valve stenosis. There is mild pulmonic regurgitation. Mitral Valve The mitral valve is grossly normal. There is no mitral valve stenosis.There is trace mitral valve regurgitation. Tricuspid Valve The tricuspid valve is normal. There is no tricuspid valve stenosis.There is mild tricuspid valve regurgitation. The pulmonary artery systolicpressure is normal, 25 mmHg. Inferior Vena Cava The inferior vena cava is normal in size (< 2.1 cm). There is > 50%collapse of the IVC upon inspiration with an estimated right atrial pressure of 3mmHg. Pericardium/Pleural There is no pericardial effusion. Aorta The aortic root at the sinus of Valsalva is dilated measuring 4.1 cmwith an index of 2.2 cm/m2. The ascending aorta is normal in size measuring 3.7cm with an index of 2.0 cm/m2. Wall Motion Scoring Index: 1.59 Measurements Left Ventricular Outflow Tract Name Value Normal LVOT 2D LVOT Diameter 2.4 cm LVOT Area 4.3 cm2 LVOT Doppler LVOT Peak Velocity 0.8 m/s LVOT Peak Gradient 3 mmHg LVOT Mean Velocity 52.89 cm/s LVOT Mean Gradient 1 mmHg LVOT VTI 16.3 cm LVOT VTI/AV VTI Ratio 0.3 LVOT Stroke Volume 71 ml LVOT Stroke Volume Index 38 ml/m2 35-58 LVOT CO 3.5 l/min LVOT CI 1.9 l/min/m2 Pulmonic Valve Name Value Normal RVOT Doppler RVOT Peak Velocity 0.7 m/s RVOT Peak Gradient 2 mmHg RVOT Mean Gradient 1 mmHg PV Doppler PV Peak Velocity 0.9 m/s PV Peak Gradient 2 mmHg PV Mean Gradient 2 mmHg PV Accel Time 111.32 ms Mitral Valve Name Value Normal MV Doppler MV Peak Gradient 2 mmHg MV Mean Gradient 0 mmHg MV DI (VTI) 1.30 MV PHT 76 ms MV Area (PHT) 2.88 cm2 4.00-5.00 MV Area (Cont Eq VTI) 3.34 cm2 MV Diastolic Function MV E Peak Velocity 0.3 m/sec MV A Peak Velocity 0.6 m/sec MV E/A 0.5 MV Decel Time (PW) 607 ms MV A Wave Duration 186 ms MV Annular TDI MV Septal e' Velocity 6 cm/s >=8 MV E/e' (Septal) 5 <=8 MV Lateral e' Velocity 4 cm/s >=10 MV E/e' (Lateral) 7 <=8 MV e' Average 5 cm/s MV E/e' (Average) 6 Tricuspid Valve Name Value Normal TV Regurgitation Doppler TR Peak Velocity 2.3 m/s TR Peak Gradient 22 mmHg Estimated PAP/RSVP RA Pressure 3 mmHg <=5 PA Systolic Pressure 25 mmHg <35 RV Systolic Pressure 25 mmHg <36 TV Annular TDI TV Lateral Elslie s' Velocity 7 cm/s 10-19 Aorta Name Value Normal Ascending Aorta Sinus of Valsalva Diameter 4.1 cm 2.8-4.0 Sinus of Valsalva Index 2.2 cm/m2 1.3-2.1 Asc Ao Diameter 3.7 cm 2.2-3.8 Asc Ao Diameter Index 2.0 cm/m2 1.1-1.9 Venous Name Value Normal IVC/SVC IVC Diameter 1.8 cm <=2.1 Aortic Valve Name Value Normal AV Doppler AV Peak Velocity 2.87 m/s AV Peak Gradient 33 mmHg AV Mean Gradient 21 mmHg AV VTI 51 cm AV Area (Cont Eq VTI) 1.39 cm2 >=2.00 AV Area (Cont Eq Antolin) 1.20 cm2 AV DI (VTI) 0.32 AV DI (Antolin) 0.28 AV Regurgitation 2D LVOT Area 4.34 cm2 Ventricles Name Value Normal LV Dimensions 2D/MM IVS Diastolic Thickness (2D) 1.1 cm 0.6-1.0 LVID Diastole (2D) 5.4 cm 4.2-5.8 LVPW Diastolic Thickness (2D) 1.1 cm 0.6-1.0 LVID Systole (2D) 4.0 cm 2.5-4.0 LV Mass (2D Cubed) 233 g 88-224 LV Mass Index (2D Cubed) 126 g/m2 49-115 Relative Wall Thickness (2D) 0.41 <=0.42 LV Fractional Shortening/Ejection Fraction 2D/MM LV Fractional Shortening (2D) 26 % 25-43 LV EF (2D Teicholz) 50 % 52-72 LV Diastolic Volume (4C MOD) 149 ml LV EF (4C MOD) 49 % LV Diastolic Volume (2C MOD) 161 ml LV EF (2C MOD) 51 % LV Diastolic Volume (BP MOD) 157 ml 62-150 LV Diastolic Volume Index (BP MOD) 85 ml/m2 34-74 LV Systolic Volume (BP MOD) 78 ml 21-61 LV Systolic Volume Index (BP MOD) 42 ml/m2 11-31 LV EF (BP MOD) 50 % 52-72 LV Diastolic Length (4C) 8.8 cm LV Systolic Length (4C) 8.1 cm LV Stroke Volume (4C MOD) 73 ml RV Dimensions 2D/MM RVID Diastole (2D) 3.1 cm 2.5-3.5 TAPSE 1.8 cm >=1.7 Atria Name Value Normal LA Dimensions LA Volume (BP MOD) 63 ml LA Volume Index (BP MOD) 34 ml/m2 16-34 RA Dimensions RA Area (4C) 20 cm2 <=18 RA Area (4C) Index 11 cm2/m2 RA ESV (4C MOD) 59 ml 18-32 RA ESV Index (4C MOD) 32 ml/m2 16-34 Report Signatures Finalized by Ramonita Betancourt on 08/14/2024 12:01 PM us Lizette Dwyer MD ECHO CUPID Final Result documented in this encounter Visit Diagnoses Diagnosis S/P AVR Heart valve replaced by other means documented in this encounter Administered Medications Inactive Administered Medications - up to 3 most recent administrations Medication Order MAR Action Action Date Dose Rate Site perflutren lipid microsphere (Definity) injection 1.5 mL 1.5 mL, Intravenous, INTRA-PROCEDURE ONCE, 1 dose, On Tue08/14/24 at 1045, Shake well before using.Indications:S/P AVR $ Given 08/14/2024 10:41 AM CDT 1.5 mL documented in this encounter Care Teams Grocery Packer Relationship Specialty Start Date End Date Vishnu Bar MD PCP - General Family Medicine 01/11/19 documented as of this encounter
--- OUTSIDE RECORDS SUMMARY | 2024-08-14 14:15 | XMS_ITS | Continuity of Care Document ---
Author Name [facility] Organization [facility] Care Team Providers Care Environmental Services Associate Name Role Phone [facility] Unavailable Unavailable Immunizations Combined list of available immunizations from the Department of Defense and Veterans Affairs facilities. Immunization Series Date Given Administered By Site Reaction Lot Number CVX Code Drug Customer Support Coordinator Status Comments Source COVID-19 (PFIZER), MRNA, LNP-S, PF, 30 MCG/0.3 ML DOSE 2 2020 208 complet ed PFR; [id number]; 1 [facility] COVID-19 (PFIZER), MRNA, LNP-S, PF, 30 MCG/0.3 ML DOSE 1 2020 208 complet ed PFR; [id number]; [address] [place] [address]
--- OUTSIDE RECORDS SUMMARY | 2024-08-14 14:15 | XMS_ITS | Clinical Summary ---
Author Organization [facility] [address] Address [address] [place] [address] Care Team Providers Care Fill Manager Name Role Phone Vishnu Bar MD Primary Care Provider [phone] Allergies Active Allergy Reactions Criticality Noted Date [...] Noted Date Diagnosed Date Cardiomyopathy, ischemic 12/14/2016 Family History Medical History Relation Name Comments Heart attack Brother Myocardial infa rction; Stroke Father 2 Stroke; Diabetes Mother Diabetes mellit us; Other Sister Unknown; Relation Name Status Comments Brother Father 1 Father 2 Mother Sister Social History Tobacco Use Types Packs/Day Years [...] on file 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
--- OUTSIDE RECORDS SUMMARY | 2024-08-14 14:15 | XMS_ITS | Clinical Summary ---
Author Organization [facility] Address [address] [place] [address] Care Team Providers Care Cart Attendant Name Role Phone Vishnu Bar MD Primary Care Provider [phone] Source Comments [facility],non-owned Affiliates and Associated Physician Practices is amultiple site organization consisting of ambulatory clinics and hospital sitesin [place], [place], [place] and [place]. This disclosure is being madepursuant to the Care Everywhere program and may not contain all information available regarding this patient. Last updated 17.[facility] Allergies Active Allergy Reactions Criticality Noted Date Comments Povidone Iodine Urticaria Medium 01/11/2019 Medications * Be aware that medications may not be up to date on this document. Alwaysverify current medications with the patient. atorvastatin (LIPITOR) 40 MG tablet Take 1 tablet by mouth at bedtime 30 tablet 3 01/15/2019 Active tamsulosin (FLOMAX) 0.4 MG capsule Take 1 capsule by mouth once daily At the same time every day after a meal. 30 capsule 3 05/08/2019 Active aspirin (ASPIRIN) 81 MG chew tablet Take 1 tablet by mouth once daily 90 tablet 3 12/25/2019 Active ELDERBERRY PO Active Ascorbic Acid (VITAMIN C PO) Activ e metoprolol succinate XL 24hr (Toprol XL) 25 MG tablet TAKE 1 TABLET BY MOUTH EVERY DAY 90 tablet 4 02/07/2023 Active lisinopril (Prinivil; Zestril) 20 MG tabletIndication s:Cardiomyopathy , unspecified type (HCC) Take 1 (one) tablet by mouth once daily 30 tablet 11 02/11/2023 Active finasteride (Proscar) 5 MG tablet Take 1 (one) tablet by mouth once daily 06/01/2024 Active tadalafil (Cialis) 20 MG tablet Take 1 (one) tablet by mouth once as needed 02/14/2024 Active Hospital, Clinic, or Other Facility Administered Medication Ordered Dose Route Frequency Start Date End Date Status perflutren lipid microsphere (Definity) injection 1.5 mLIndications:S/P AVR 1.5 mL IV INTRA-PROCEDURE ONCE 08/14/2024 08/14/2024 Ended Active Problems Problem Noted Date Diagnosed Date Bradycardia 07/28/2022 S/P AVR 07/28/2022 Cardiomyopathy 07/28/2022 Essential hypertension 07/28/2022 Coronary artery disease invo lving [place] coronary artery of [place] heart without angina pectoris 07/28/2022 Elevated troponin 01/12/2019 Intraparenchymal hematoma of brain 01/11/2019 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 Resolved Problems Problem Noted Date Diagnosed Date Resolved Date Aortic valve regurgitation 04/30/2019 0 05/07/2019 Encounters Date Type Department Care Team Description 08/14/2024 11:00 AM CDT Office Visit [facility] - Cardiology [address] [facility], [address] [address] Lizette Dwyer MD LV (left ventricular) mural thrombus (Primary Dx) 08/14/2024 10:00 AM CDT Ancillary Procedure [facility] - Echosonography [address] [address] S/P AVR 08/14/2024 Travel from Last 3 Months Immunizations Immunization Administration Dates Next Due [employer] primary monoval ent 12+ yr 0.3mL Purple cap 04/07/2020,03/17/2020 INFLUENZA VACCINE, ADJUVANTE D, TRIV. (FLUAD TRIVALENT; 65Y+) (AIIV3) 11/22/2018 INFLUENZA VACCINE, HIGH-DOSE , QUADR. (FLUZONE HIGH-DOSE QUADRIVALENT; 65Y+), 0.7 ML (HD-IIV4) 11/08/2019 Family History Medical History Relation Name Comments CAD (Coronary Artery Disease) Father CVA Father Hypertension Father CAD (Coronary Artery Disease) Mother Diabetes - Type 2 Mother Relation Name Status Comments Father Mother Social History Tobacco Use Types Packs/Day Years Used Date Smoking Tobacco: Former Cigarettes Q uit: 1985 Smokeless Tobacco: Never Tobacco Cessation:Counseling Given: Not Answered Alcohol Use Standard Drinks/Week Comments Yes 1 (1 standard drink = 0.6 oz pur e alcohol) 4 beers per month Sex and Gender Information Value Date Recorded Sex Assigned at Not on file Legal Sex Male 11:52 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 SHAKER Gender Identity Not on file Sexual Orientation Not on file Last Filed Vital Signs Vital Sign Reading Time Taken Comments Blood Pressure 138/84 08/14/2024 11:07 AM CDT Pulse 67 08/14/2024 11:07 AM CDT Temperature 36.7 C (98.1 F) 01/20/2022 9:52 AM HAND SHAKER Respiratory Rate 20 05/11/2019 2:05 PM CDT Oxygen Saturation 93% 08/14/2024 11:07 AM CDT Inhaled Oxygen Concentration 35% 05/02/2019 4 :02 AM HAND SHAKER Weight 69.9 kg (154 lb) 08/14/2024 11:07 AM CDT Height 177.8 cm (5' 10) 08/14/2024 11:07 AM CDT Body Mass Index 22.1 08/14/2024 11:07 AM CDT Plan of Treatment Health Maintenance Due Date Last Done Comments HEPATITIS C SCREENING 06/05/1964 DTAP/TDAP/TD VACCINES (1 - Tdap) 1965 PNEUMOCOCCAL VACCINE 50+ (1 of 1 - PCV) 1996 ZOSTER VACCINE (1 of 2) 1996 Respiratory Syncytial Virus (RSV) Vaccine Pt: or over 60 yrs (1 - 1-dose 75+ series) 2021 COVID-19 VACCINE (3 - 2023-2 5 season) 2023 04/07/2020, 03/17/2020 DEPRESSION SCREENING 02/29/2024 MEDICARE AWV CALENDAR YEAR 2024 INFLUENZA VACCINE (Season Ended) 2024 11/08/2019, 11/22/2018 HEPATITIS B VACCINE Aged Out No longe r eligible based on patient's age to complete this topic HIB VACCINE Aged Out No longer eligi ble based on patient's age to complete this topic HPV VACCINE Aged Out No longer eligi ble based on patient's age to complete this topic MENINGOCOCCAL (Group B) VACCINE SHARED DECISION-MAKING Aged Out No longer eligible based on patient's age to complete this topic MENINGOCOCCAL GROUPS A/C/Y/W VACCINE Aged Out No longer eligible b ased on patient's age to complete this topic Medical Devices Implanted Type Area Poultry And Fish Butcher Device Identifier Shelf Expiration Date Model / Serial / Lot Aortic Vavle Implanted:Qty: 1 on 05/01/2019 by Nas Dueñas MD at [facility] Heart Valve N/A: Heart [employer] 04/29/2020 [id number] / [id number] / [id number] Description:Bioprosthesis-Ao rtic Valve Procedures Procedure Name Priority Date/Time Associated Diagnosis Comments ECHO COMPLETE W CONTRAST Routine 08/14/2024 11:00 AM CDT S/P AVR from Last 3 Months Results * ECHO COMPLETE W CONTRAST (08/14/2024 [...] LV A4C EF 49.07 % SSM CV FUJ I PACS LV EDV A2C 160.719 ml SSM CV FU JI PACS LV EDV A4C 149.158 ml SSM CV FU JI PACS LV ESV A2C 78.761 ml SSM CV FU JI PACS LV ESV A4C 75.965 ml SSM CV FU JI PACS LVOT pk grad 2.529 mmHg SSM CV FUJI PACS LVOT pk antolin 79.522 cm/s SSM CV F UJI PACS LVOT VTI 16.305 cm SSM CV FUJ I PACS RVIDd 3.141 cm SSM CV FUJ I PACS RVOT pk antolin 70.43 cm/s SSM CV F UJI PACS RVOT VTI 13.561 cm SSM CV FUJ I PACS LA vol BP 62.64 ml SSM CV FUJ I PACS RA area 19.717 cm SSM CV FUJI PACS AV area pk antolin 1.203 cm SSM CV FUJI PACS AV area cont VTI 1.39 cm SSM CV FUJI PACS AV pk grad 33.02 mmHg SSM CV FU JI PACS AV mn grad 21.489 mmHg SSM CV FU JI PACS AV pk antolin 287.317 cm/s SSM CV FUJ I PACS AV VTI 50.965 cm SSM CV FUJ I PACS MV A pk antolin 55.702 cm/s SSM CV F UJI PACS MV E pk antolin 28.359 cm/s SSM CV F UJI PACS MV E' lateral antolin 4.336 cm/s SS M CV FUJI PACS MV mn grad 0.474 mmHg SSM CV FU JI PACS MV VTI 21.216 cm SSM CV FUJ I PACS PV pk antolin 89.795 cm/s SSM CV FUJ I PACS TAPSE 1.751 cm SSM CV FUJ I PACS TR pk antolin 232.484 cm/s SSM CV FUJ I PACS Ascending aorta 3.708 cm SSM CV FUJI PACS IVC Diam Expiration 1.768 cm SSM CV FUJI PACS Sinus of Valsalva 4.116 cm SS M CV FUJI PACS AV area index 0.749 cm /m SSM CV FUJI PACS LA vol index 0.034 l/m SSM [...] 10:38 AM Patient Status: O Study Site: [facility] Primary Location: [facility] Info Exam Type: ECHO COMPLETE W CONTRAST Indications Z95.2 - S/P AVR Procedure(s) * A complete 2D, color Doppler, and spectral Doppler transthoracic echocardiogram was performed. * An Ultrasound Enhancing Agent (UEA) was utilized to enhance endocardial definition and opacify the left ventricle. Contrast/Agitated Saline Contrast / Saline: Definity Amount: 0.50 ml Staff Referring Physician: Lizette Dwyer MD Ordering Provider: Lizette Dwyer MD Back Roller: Radha Morejon Left Ventricle Status post FREDO [...] LA Volume Index (BP MOD) 34 ml/m2 1634 RA Dimensions RA Area (4C) 20 cm2 [...] 10:38 AM Patient Status: O Study Site[facility] Info Exam Type: ECHO COMPLETE W CONTRAST Indications Z95.2 - S/P AVR Procedure(s) * A complete 2D, color Doppler, and spectral Doppler transthoracic echocardiogram was performed. * An Ultrasound Enhancing Agent (UEA) was utilized to enhanceendocardial definition and opacify the left ventricle. Contrast/Agitated Saline Contrast / Saline: Definity Amount: 0.50 ml Staff Referring Physician: Lizette Dwyer MD Ordering Provider: Lizette Dwyer MD Back Roller: Radha Morejon Left Ventricle Status post FREDO [...] Lizette Dwyer MD ECHO CUPID Final Result from Last 3 Months Insurance [employer] MANAGED MEDICARE ADV Advance Directives * Full Code (Latest Code Status on File) Date Activated Date Inactivated Comments 05/01/2019 4:23 PM 05/07/2019 6:27 PM * Full Code Date Activated Date Inactivated Comments 01/11/2019 4:07 PM 01/15/2019 4:16 PM Care Teams Cart Attendant Relationship Specialty Start Date End Date Vishnu Bar MD PCP - General Family Medicine 01/11/19
[2024-08-14 14:26] VITALS: BP 126/75; PULSE 51; RESP 18; TEMP 36.4; O2SAT 96
[2024-08-14 14:45] VITALS: BP 121/76; PULSE 52; RESP 14; O2SAT 97
[2024-08-14 15:00] VITALS: BP 121/74; PULSE 53; RESP 14; O2SAT 96
[2024-08-14 15:15] VITALS: BP 149/83; PULSE 58; RESP 58; O2SAT 97
--- OUTSIDE RECORDS SUMMARY | 2024-08-14 15:49 | XMS_ITS | Referral Summary ---
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
--- OUTSIDE RECORDS SUMMARY | 2024-08-14 15:49 | XMS_ITS | Continuity of Care Document ---
Author Name [facility] Organization [facility] Care Team Providers Care Bridge Saw Operator Name Role Phone [facility] Unavailable Unavailable Immunizations Combined list of available immunizations from the Department of Defense and Veterans Affairs facilities. Immunization Series Date Given Administered By Site Reaction Lot Number CVX Code Drug Securities And Real Estate Director Status Comments Source COVID-19 (PFIZER), MRNA, LNP-S, PF, 30 MCG/0.3 ML DOSE 2 2020 208 complet ed PFR; [id number]; [facility] COVID-19 (PFIZER), MRNA, LNP-S, PF, 30 MCG/0.3 ML DOSE 1 2020 208 complet ed PFR; [id number]; [address] [place] [address]
--- OUTSIDE RECORDS SUMMARY | 2024-08-14 15:49 | XMS_ITS | Encounter Summary ---
Author Organization [facility] Address [address] [facility] [place] [address] Care Team Providers Care Boring Machine Operator Vertical Name Role Phone Vishnu Bar MD Primary Care Provider [phone] Reason for Visit * Reason Comments Echo Interpretation Encounter Details Date Type Department Care Team (Late st Contact Info) Description 08/14/2024 11:00 AM CDT Office Visit [facility] - Cardiology [address] [id number] Lizette Dwyer MD [facility] [address] LV (left ventricular) mural thrombus (Primary Dx) [...] on file 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 Lizette Dwyer M.D. F.A.C.C. special events fundraiser [facility] documented in this encounter Plan of Treatment Not on file documented as of this encounter Visit Diagnoses Diagnosis LV (left ventricular) mural thrombus- Primary Acute myocardial infarction, unspecified site, episode of care unspecified documented in this encounter Care Teams Boring Machine Operator Vertical Relationship Specialty Start Date End Date Vishnu Bar MD PCP - General Family Medicine 01/11/19 documented as of this encounter
--- OUTSIDE RECORDS SUMMARY | 2024-08-14 15:49 | XMS_ITS | Encounter Summary ---
Author Organization [facility] Address [address] [facility] [place] [address] Care Team Providers Care Revenue Enforcement Collection Agent Name Role Phone Vishnu Bar MD Primary Care Provider [phone] Reason for Visit * Cardiac (Routine) - Closed Specialty Diagnoses / Procedures Referred By Contac t Referred To Contact Cardiology Diagnoses S/P AVR Procedures ECHO COMPLETE NM TTE W/DOPPLER, COMPLETE NM TTE W/O DOPPLER, COMPLETE Lizette Dwyer MD [address] [address] Phone: tel: fax: [facility] - Echosonography [address] [address] Phone: tel: fax: Referral ID Status Reason Start Date Expiration Date Visits Re quested Visits Authorized [id number] Closed 08/16/2023 08/15/2024 1 1 Encounter Details Date Type Department Care Team (Late st Contact Info) Description 08/14/2024 10:00 AM CDT Ancillary Procedure [facility] - Echosonography [address] [address] S/P AVR Social History Tobacco Use Types Packs/Day Years Used Date Smoking Tobacco: Former Cigarettes Q uit: 1985 Smokeless Tobacco: Never Alcohol Use Standard Drinks/Week Comments Yes 1 (1 standard drink = 0.6 oz pur e alcohol) 4 beers per month Sex and Gender Information Value Date Recorded Sex Assigned at Not on file 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64 ml SSM CV [facility] I PACS RA area 19.717 cm [facility] AV area pk antolin 1.203 cm [facility] AV area cont VTI 1.39 cm [facility] AV pk grad 33.02 mmHg SSM CV FU JI PACS AV mn grad 21.489 mmHg SSM CV FU JI PACS AV pk antolin 287.317 cm/s SSM CV [facility] I PACS AV VTI 50.965 cm SSM CV [facility] I PACS MV A pk antolin 55.702 cm/s SSM CV F U PACS MV E pk antolin 28.359 cm/s SSM CV F U PACS MV E' lateral antolin 4.336 cm/s SS [facility] MV mn grad 0.474 mmHg SSM CV FU PACS MV VTI 21.216 cm SSM CV [facility] I PACS PV pk antolin 89.795 cm/s SSM CV [facility] I PACS TAPSE 1.751 cm SSM CV [facility] I PACS TR pk antolin 232.484 cm/s SSM CV [facility] I PACS Ascending aorta 3.708 cm [facility] IVC Diam Expiration 1.768 cm [facility] Sinus of Valsalva 4.116 cm SS [facility] AV area index 0.749 cm /m [facility] LA vol index 0.034 l/m SSM [...] 10:38 AM Patient Status: O Study Site: [facility] Dwyer MD Ordering Provider: Lizette Dwyer MD Employee Communications Manager: Radha Morejon Left Ventricle Status post FREDO [...] 10:38 AM Patient Status: O Study Site: [facility] [...] Dwyer MD Ordering Provider: Lizette Dwyer MD Employee Communications Manager: Radha Morejon Left Ventricle Status post FREDO [...] mL documented in this encounter Care Teams Revenue Enforcement Collection Agent Relationship Specialty Start Date End Date Vishnu Bar MD PCP - General Family Medicine 01/11/19 documented as of this encounter
--- OUTSIDE RECORDS SUMMARY | 2024-08-14 15:49 | XMS_ITS | Encounter Summary ---
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
--- OUTSIDE RECORDS SUMMARY | 2024-08-14 15:49 | XMS_ITS | Clinical Summary ---
Author Organization [facility] Address [address] [place] [address] Care Team Providers Care Laboratory Equipment Cleaner Name Role Phone Vishnu Bar MD Primary Care Provider [phone] Source Comments [facility],non-owned Affiliates and Associated Physician Practices is amultiple site organization consisting of ambulatory clinics and hospital sitesin [place], [place], [place]. This disclosure is being madepursuant to the Care Everywhere program and may not contain all information available regarding this patient. 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 Resolved Problems Problem Noted Date Diagnosed Date Resolved Date Aortic valve regurgitation 04/30/2019 0 05/07/2019 Encounters Date Type Department Care Team Description 08/14/2024 11:00 AM CDT Office Visit [facility] - Cardiology [address] [facility], [address] [address] Lizette Dwyer MD LV (left ventricular) mural thrombus (Primary Dx) 08/14/2024 10:00 AM CDT Ancillary Procedure [facility] - Echosonography [address] [address] S/P AVR 08/14/2024 Travel from Last 3 Months Immunizations Immunization Administration Dates Next Due [employer] primary monoval ent 12+ yr 0.3mL Purple [...] on file 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 Gender Identity Not on file Sexual Orientation Not on file Last Filed Vital Signs Vital Sign Reading Time Taken Comments Blood Pressure 138/84 08/14/2024 11:07 AM CDT Pulse 67 08/14/2024 11:07 AM CDT Temperature 36.7 C (98.1 F) 01/20/2022 9:52 AM BOILER COVERER Respiratory Rate 20 05/11/2019 2:05 PM CDT Oxygen Saturation 93% 08/14/2024 11:07 AM CDT Inhaled Oxygen Concentration 35% 05/02/2019 4 :02 AM BOILER COVERER Weight 69.9 kg (154 lb) 08/14/2024 11:07 [...] this topic Medical Devices Implanted Type Area Data Operations Leader Device Identifier Shelf Expiration Date Model / Serial / Lot Aortic Vavle Implanted:Qty: 1 on 05/01/2019 by Nas Dueñas MD at [facility] Heart Valve N/A: Heart [employer] 04/29/2020 [id number] 5 MM / [id number] / [id number] Description:Bioprosthesis-Ao rtic Valve Procedures Procedure Name Priority [...] 10:38 AM Patient Status: O Study Site: [facility] Primary Location: [facility] Info Exam Type: ECHO COMPLETE W CONTRAST Indications Z95.2 - S/P AVR Procedure(s) * A complete 2D, color Doppler, and spectral Doppler transthoracic echocardiogram was performed. * An Ultrasound Enhancing Agent (UEA) was utilized to enhance endocardial definition and opacify the left ventricle. Contrast/Agitated Saline Contrast / Saline: Definity Amount: 0.50 ml Staff Referring Physician: Lizette Dwyer MD Ordering Provider: Lizette Dwyer MD Glass Bender: Radha Morejon Left Ventricle Status post FREDO [...] 10:38 AM Patient Status: O Study Site: [facility] Exam Type: ECHO COMPLETE W CONTRAST Indications Z95.2 - S/P AVR Procedure(s) * A complete 2D, color Doppler, and spectral Doppler transthoracic echocardiogram was performed. * An Ultrasound Enhancing Agent (UEA) was utilized to enhanceendocardial definition and opacify the left ventricle. Contrast/Agitated Saline Contrast / Saline: Definity Amount: 0.50 ml Staff Referring Physician: Lizette Dwyer MD Ordering Provider: Lizette Dwyer MD Glass Bender: Radha Morejon Left Ventricle Status post FREDO [...] 4:07 PM 01/15/2019 4:16 PM Care Teams Laboratory Equipment Cleaner Relationship Specialty Start Date End Date Vishnu Bar MD PCP - General Family Medicine 01/11/19
--- OUTSIDE RECORDS SUMMARY | 2024-08-14 15:49 | XMS_ITS | Clinical Summary ---
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
--- OUTSIDE RECORDS SUMMARY | 2024-08-14 15:49 | XMS_ITS | CONTINUITY OF CARE DOCUMENT ---
Author Name debra richardson Address Unknown Organization [facility] Office Address [address] [address] Phone [phone] Care Team Providers Care Deputy Sheriff K9 Handler Name Role Phone debra richardson Unavailable Unavailable
--- NOTE | 2024-08-14 16:04 | ECG_ITS ---
Test Date: 2024-08-14 14:32:40 Measurements Intervals [place] Rate: 49 P: 66 NE: 191 QRS: -87 QRSD: 148 T: 89 QT: 429 QTc: 391 Interpretive Statements SINUS BRADYCARDIA WITH SINUS ARRHYTHMIA LEFT AXIS DEVIATION RIGHT BUNDLE BRANCH BLOCK INFERIOR INFARCT, AGE INDETERMINATE ANTEROLATERAL INFARCT, AGE INDETERMINATE ABNORMAL ECG No previous ECG available for comparison Electronically Signed On 08-14-2024 16:53:23 CDT by Kadeem Hills D.O.
--- NOTE | 2024-08-14 16:08 | ED.GENADULT ---
HPI - General Adult General Chief complaint: Recheck/Abnormal Lab/Rx Stated complaint: possible clot in heart? Time Seen by Provider: 08/14/24 14:44 Source: patient Mode of arrival: ambulatory Limitations: no limitations History of Present Illness HPI narrative: Patient is a 79-year-old male, with PMH of CAD, aortic valve replacement, who presents to the ED with c/o clot in his heart. Patient reports he had a routine appointment with this car repairer pullman, Dr. Lizette Dwyer, today and had an echocardiogram performed. He was then notified that the echo showed a clot in his heart and to come to [facility] to be admitted. Patient states he then drove back to his house and had his drive him here. Patient has no acute complaints. Denies chest pain or shortness breath. Related Data Home Medications ?Medication ?Instructions ?Recorded ?Confirmed ?Last Taken ?Type ascorbic acid (vitamin C) 500 mg 500 mg PO DAILY 05/15/20 05/09/24 06/14/23 History tablet aspirin 81 mg chewable tablet 81 mg PO DAILY 05/15/20 05/09/24 06/14/23 History vit C 65 mg-D3 3.15 mcg-vit E 3.35 2 tablet PO DAILY 05/15/20 05/09/24 06/14/23 History mg-zinc 1 mg-elderberry chew tablet (Airborne Vits Zinc Elderberry) Allergies Allergy/AdvReac Type Severity Reaction Status Date / Time No Known Allergies Allergy Verified 06/15/23 07:21 Review of Systems Review of Systems: All systems reviewed & are unremarkable except as noted in HPI. All systems reviewed & are unremarkable except as noted in HPI and below [facility] Past Medical History Medical History Facial paresthesia intermittent paresthesias of the left side of the face and left upper extremity Plantar fasciitis of left foot At low risk for fall Colon cancer screening Normal colonoscopy 06/15/2023 with no further screening needed. BMI 21.0-21.9, adult Encounter for prostate cancer screening PSA 2.9 on 08/04/2021. PSA 2.97 on 08/09/2022. PSA 1.6 on 09/30/2023. Trigger finger, left middle finger Rosacea BMI 22.0-22.9, adult Dermatitis (~10/2020) Herpes zoster (~10/2020) right face BMI 23.0-23.9, adult BPH without obstruction/lower urinary tract symptoms treated by urologist PSA 2.9 on 08/04/2021. Chronic anxiety Dysphagia Chronic atrial fibrillation Anemia Traumatic hematoma of right forearm Cellulitis of right forearm Coronary artery disease involving [place] coronary artery of [place] heart without angina pectoris Cardiac catheterization 2020 with 40% lesion of the LAD and 60% lesion of the ramus treated medically Essential (primary) hypertension Hx TIA/stroke w/o resid Mixed hyperlipidemia Total cholesterol 132, triglycerides 53, HDL 57, LDL 64 on 08/09/2022. Cholesterol 145, triglycerides 89, HDL 51, LDL 71 on 09/30/2023. Nocturia Peripheral polyneuropathy Chronic bilateral low back pain with bilateral sciatica Chronic neck pain Abnormal fasting glucose Fasting glucose 109 on 08/09/2022 with hemoglobin A1c 6.1. Fasting glucose 105 on 09/30/2023. Seasonal allergic rhinitis Cardiomyopathy ef 38%. ejection fraction 20% on echocardiogram 05/03/2019. Ejection fraction 52% on 04/22/2020. ejection fraction 40-45% January,. Chronic anticoagulation CVA (cerebrovascular accident due to intracerebral hemorrhage) No residual. TIA ? HTN (hypertension) CAD (coronary artery disease) Surgical History Surgical History History of aortic valve replacement History of heart artery stent H/O cardiac catheterization Family History Family History Mother Diabetes mellitus Family history of cardiovascular disease, Onset Age: 59 Father Cerebrovascular accident, Onset Age: 70 Social History Social History Smoking packs per day: 1.5 Smoking cigarettes per day: 30.0 Years smoked: 20 Smoking pack-years: 30.00 Smoking status: Former smoker Tobacco type: cigarettes Alcohol intake: current Drinks per week: 1 Substance use: never Substance use type: does not use Lack of Transportation: No Lack of Food: Never True Current Housing: I Have Housing Concerned About Future Housing: No Difficulty Paying Gas/Electric Bills: No Difficulty Paying for Meds: No Currently Unemployed: No Education: Trade/Vocational Certificate Difficulty w/ Childcare or Family Care: No Living arrangements: with family Gender identity (if verbalized by the patient): Male Spiritual care concerns: No Exam Narrative: GENERAL: Elderly but well appearing, well-nourished, non-toxic, in no acute distress. HEAD: Normocephalic, atraumatic. RESPIRATORY: Airway patent, respirations nonlabored. Clear to auscultation bilaterally, no rales, rhonchi, wheezing. CARDIOVASCULAR: Regular rate and rhythm, +murmur. Peripheral pulses intact. MUSCULOSKELETAL: Moves all extremities. No gross deformities. No peripheral edema. SKIN: Warm, dry, normal color. NEURO: A&O X3. Speech clear. PSYCHIATRIC: Appropriate mood and affect. Normal interaction. Course Vital Signs Vital signs: Vital Signs Temperature 97.1 F L 08/14/24 13:43 Pulse Rate 74 08/14/24 13:43 Respiratory Rate 18 08/14/24 13:43 Blood Pressure 121/81 08/14/24 13:43 Pulse Oximetry 98 08/14/24 13:43 Oxygen Delivery Room Air 08/14/24 13:43 Temperature 97.6 F 08/14/24 14:26 Pulse Rate 57 L 08/14/24 16:22 Respiratory Rate 16 08/14/24 16:22 Blood Pressure 136/75 08/14/24 16:22 Pulse Oximetry 97 08/14/24 16:22 Oxygen Delivery Room Air 08/14/24 13:43 Medical Decision Making MDM Narrative Medical decision making narrative: Patient presented to ED for clot in his heart. Was advised to go to [facility] today however patient presented here instead. Sees [facility] Cardiology, Dr. Lizette Dwyer. Vital signs are stable upon arrival here. He is in no acute distress. Denying any acute complaints. Denying chest pain, shortness of breath. Patient requesting an ambulance to go to [facility]. I discussed the transfer process with patient and advised it is not simply as easy as transferring patient immediately to [facility], advised I will need to obtain a workup on patient, and make multiple phone calls to determine exact diagnosis and initiate transfer process. Patient very frustrated with this. Patient demanding to know if he will get to [facility] Hospital tonight. I advised that I am not able to make that promise and that I will know more once I am able to speak to the transfer center and Cardiology team. Blood work, EKG, chest x-ray was ordered. EKG with sinus rhythm, no concerning ST changes. Prior to receiving blood work, patient decided he would like to leave the facility. He states he will go back to his home and order a cab to [facility]. I advised against this and did not feel this would be in his best interest. I recommended that he let us continue to initiate a transfer appropriately. Patient demanding to leave. He is alert oriented x4, of sound mind, capable of making his own decisions. Advised she will need to sign out against medical advice if he decides to leave. He was agreeable to this. AMA paperwork was signed. Discussed risks of leaving AMA. Patient voiced understanding of risks, including /cardiac arrest/CVA. Patient ambulatory out of the facility with a steady gait. I did speak to [facility] transfer center to notify of why patient has not been at their facility yet and that he may show up there soon. Medical Records Medical records reviewed: Yes I reviewed the external patient's medical records. Vital Signs Vital Signs: Vital Signs Temperature 97.1 F L 08/14/24 13:43 Pulse Rate 74 08/14/24 13:43 Respiratory Rate 18 08/14/24 13:43 Blood Pressure 121/81 08/14/24 13:43 Pulse Oximetry 98 08/14/24 13:43 Oxygen Delivery Room Air 08/14/24 13:43 Temperature 97.6 F 08/14/24 14:26 Pulse Rate 57 L 08/14/24 16:22 Respiratory Rate 16 08/14/24 16:22 Blood Pressure 136/75 08/14/24 16:22 Pulse Oximetry 97 08/14/24 16:22 Oxygen Delivery Room Air 08/14/24 13:43 ECG Data EKG #1: Attestation: I personally reviewed and interpreted this ECG as follows: ECG completion date: 08/14/24 ECG completion time: 14:32 EKG Interpretation: bradycardia (49), sinus rhythm (With sinus arrhythmia), non-specific ST changes and RBBB Discharge Plan Discharge Clinical Impression: Abnormal echocardiogram Patient Disposition: Left Against Medical Advice Condition: Guarded Prognosis Patient Language: Taiwanese Prescriptions: No Action ascorbic acid (vitamin C) 500 mg Tablet 500 mg PO DAILY aspirin [Aspirin Child] 81 mg Tablet,Chewable 81 mg PO DAILY Airborne Vits Zinc Elderberry 65 mg-3.15 mcg- 3.35 mg-1 mg Tablet,Chewable 2 tablet PO DAILY azelastine 137 mcg (0.1 %) aerosol,spray 137 mcg intranasal Q12H Qty: 30 11RF Rx Instructions: administer into each nostril finasteride [Proscar] 5 mg tablet 5 mg PO DAILY Qty: 30 11RF metoprolol succinate 25 mg tablet extended release 24 hr 25 mg PO . q.h.s. Qty: 90 3RF tadalafil [Cialis] 20 mg tablet 20 mg PO DAILY PRN (Reason: sexual activity) Qty: 90 1RF Rx Instructions: administer approximately 30min before sexual activity; do not use more than 1 dose per 24hrs randhawa pay lisinopril 10 mg tablet 10 mg PO . q.a.m. Qty: 30 11RF atorvastatin 40 mg tablet 40 mg PO HS Qty: 90 3RF tamsulosin 0.4 mg capsule 0.4 mg PO DAILY Qty: 90 3RF Follow-up/Referrals: Vishnu Bar MD [Primary Care Provider] -
[2024-08-14 16:22] VITALS: BP 136/75; PULSE 57; RESP 16; O2SAT 97
== END 2024-08-14 16:26 | disposition left against medical advice (07) ==
PROVIDERS: Emergency Provider Physician Assistant; PCP Family Medicine
DX: R94.31 Abnormal electrocardiogram [ECG] [EKG] (principal); R00.1 Bradycardia, unspecified; I45.10 Unspecified right bundle-branch block; F41.9 Anxiety disorder, unspecified; I48.91 Unspecified atrial fibrillation; D64.9 Anemia, unspecified; I25.10 Atherosclerotic heart disease of native coronary artery without angina pectoris; Z86.73 Personal history of transient ischemic attack (TIA), and cerebral infarction without residual deficits; E78.5 Hyperlipidemia, unspecified
CPT/HCPCS: 93005; 99283

== ENCOUNTER 2024-12-22 12:02 | Emergency (ER) | payer MEDICARE, SELFPAY ==
--- NOTE | ~2024-12-22 | XR_ITS ---
Examination: XR hand LT min 3V Clinical History: finger amputations Comparison: None Technique: 3 views left hand Findings/impression: 1. Third finger amputation through middle portion of middle phalanx. 2. Fourth finger amputation along distal-most tuft. 3. No evidence of osteomyelitis. 4. No other acute abnormality identified. Reviewed, dictated and finalized at location R.
--- OUTSIDE RECORDS SUMMARY | 2024-12-22 12:05 | XMS_ITS | Encounter Summary ---
Author Organization [facility] Address [address] [place] [address] Care Team Providers Care Sales Driver Name Role Phone Vishnu Bar MD Primary Care Provider [phone] Reason for Visit * Reason Onset Date Comments Appointment 08/29/2024 Encounter Details Date Type Department Care Team (Late st Contact Info) Description 08/29/2024 Telephone [facility] - Cardiology [address] [phone] Lizette Dwyer MD [address] [address] Appointment Social History Tobacco Use Types Packs/Day Years Used Date Smoking Tobacco: Former Cigarettes Q uit: 1986 Smokeless Tobacco: Never Alcohol Use Standard Drinks/Week Comments Yes 1 (1 standard drink = 0.6 oz pur e alcohol) 4 beers per month Sex and Gender Information Value Date Recorded Sex Assigned at Not on file Legal Sex Male 11:52 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 Gender Identity Not on file Sexual Orientation [...] Deion Theodore RN documented in this encounter Miscellaneous Notes * Telephone Encounter - Jonna Dominguez - 08/29/2024 3:28 PM CDT Reason for call: Patient expressed urgency regarding receiving a call back from the office for a sooner appt with or , due to his INR being 7.1 Patient Call Back number: [phone] documented in this encounter Plan of Treatment Upcoming Encounters Date Type Department Care Team (Late st Contact Info) Description 01/08/2025 2:00 PM BATCH ATTENDANT Ancillary Procedure [facility] - Echosonography [address] [facility], [address] [address] 01/08/2025 3:00 PM BATCH ATTENDANT Office Visit [facility] - Cardiology [address], [facility] [place] [address] Lizette Dwyer MD [address] [facility] [address] documented as of this encounter Visit Diagnoses Not on filedocumented in this encounter Care Teams Sales Driver Relationship Specialty Start Date End Date Vishnu Bar MD PCP - General Family Medicine 01/11/19 documented as of this encounter
--- OUTSIDE RECORDS SUMMARY | 2024-12-22 12:05 | XMS_ITS | Clinical Summary ---
Author Organization [facility] [address] Address [address] [place] [address] Care Team Providers Care Urban Redevelopment Specialist Name Role Phone Vishnu Bar MD Primary Care Provider [phone] Allergies Active Allergy Reactions Criticality Noted Date [...] 06/20/2014 Active azelastine 0.15 % (205.5 mcg) spray,non-aeros ol daily. Active finasteride (PROSCAR) 5 mg tablet Take 1 tablet (5 mg total) by mouth daily Active lisinopriL (PRINIVIL,ZESTR [place]) 10 mg tablet Take 1 tablet (10 mg total) by mouth every morning Active tamsulosin (FLOMAX) 0.4 mg extended release capsule Take 1 capsule (0.4 mg total) by mouth daily Active warfarin (COUMADIN) 3 mg tablet Take 1 tablet (3 mg total) by mouth daily Active Active Problems Problem Noted Date Diagnosed Date Cardiomyopathy, ischemic 12/14/2016 Encounters Date Type Department Care Team Description 12/20/2024 8:30 AM CDT Office Visit [facility] Cardiology at [address] [place] [address] Alek Jiang MD Cardiomyopathy, ischemic (Primary Dx) from Last 3 Months Family History Medical History Relation Name Comments [...] drink = 0.6 oz pur e alcohol) Sex and Gender Information Value Date Recorded Sex Assigned at Not on file 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 Gender Identity Not on file Sexual Orientation Not on file Obstetrics History Last Filed Vital Signs Vital Sign Reading Time Taken Comments Blood Pressure 132/70 12/20/2024 8:41 AM CDT Pulse 36 12/20/2024 8:41 AM CDT Temperature - - Respiratory Rate - - Oxygen Saturation 97% 12/20/2024 8:41 AM CDT Inhaled Oxygen Concentration - - Weight 70.4 kg (155 lb 1.6 oz) 12/20/2024 8:41 A M CDT Height 177.8 cm (5' 10) 12/20/2024 8:41 AM CDT Body Mass Index 22.25 12/20/2024 8:41 AM CDT Plan of Treatment Health Maintenance Due Date Last Done Comments Depression Screening 1945 Fall Risk Assessment 1945 Hepatitis C Screening 1945 Hepatitis B Screening 1964 Zoster Vaccine (1 of 2) 1996 Abdominal Aortic Aneurysm (A AA) Screen 06/11/2011 Well Visit 65+ 06/11/2011 DTaP/Tdap/Td Vaccine (3 - Td or Tdap) 12/08/2034 12/08/2024, 06/03/2014 Pneumococcal vaccine 65+ Completed 11/20/2016, 1009/2015 Covid-19 Vaccine Completed 12/08/2024, 01/2024, 12/08/2022, Additional history exists Influenza Vaccine Completed 12/08/2024, , 12/08/2022, Additional history exists Procedures Procedure Name Priority Date/Time Associated Diagnosis Comments ECG 12-LEAD Routine 12/20/2024 8:44 AM CDT Cardiomyopathy, ischemic from Last 3 Months Results * ECG 12 lead (12/20/2024 8:44 AM CDT) us Alek Jiang MD ECG ORDERABLES Edited R esult - Final from Last 3 Months Insurance [address] [place] [address] UHC MEDICARE ADVANTAGE Care Teams Urban Redevelopment Specialist Relationship Specialty Start Date End Date Vishnu Bar MD [address] [phone] PCP - General 06/03/16
--- OUTSIDE RECORDS SUMMARY | 2024-12-22 12:05 | XMS_ITS | Clinical Summary ---
Author Organization [facility] Address [address] [facility] [place] [address] Care Team Providers Care Hatch Boss Name Role Phone Vishnu Bar MD Primary Care Provider [phone] Source Comments [facility],non-owned Affiliates and Associated Physician Practices is amultiple site organization consisting of ambulatory clinics and hospital sitesin [place], [place], [place]. This disclosure is being madepursuant to the Care Everywhere program and may not contain all information available regarding this patient. Last updated 17.[facility] Allergies Active Allergy Reactions Criticality Noted Date Comments Povidone Iodine Urticaria Medium 01/11/2019 Medications * Be aware that medications may not be up to date on this document. Alwaysverify current medications with the patient. atorvastatin (LIPITOR) 40 MG tablet Take 1 tablet by mouth at bedtime 30 tablet 3 9 Active tamsulosin (FLOMAX) 0.4 MG capsule Take 1 capsule by mouth once daily At the same time every day after a meal. 30 capsule 3 0 Active aspirin (ASPIRIN) 81 MG chew tablet Take 1 tablet by mouth once daily 90 tablet 3 0 Active metoprolol succinate XL 24hr (Toprol XL) 25 MG tablet TAKE 1 TABLET BY MOUTH EVERY DAY 90 tablet 4 3 Active finasteride (Proscar) 5 MG tablet Take 1 (one) tablet by mouth once daily 5 Active acetaminophen (Tylenol) 500 MG tablet Take 1 (one) tablet by mouth every 4 hours as needed for Fever or Pain Maximum allowable Acetaminophen amount = 4 Grams (4000 mg) / 24 hours. 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 BPH (benign prostatic hyperplasia) 08/15/2024 Bradycardia 07/28/2022 S/P AVR 07/28/2022 Cardiomyopathy 07/28/2022 Essential hypertension 07/28/2022 Coronary artery disease invo lving [place] coronary artery of [place] heart without angina pectoris 07/28/2022 Elevated troponin 01/12/2019 Intraparenchymal hematoma of brain 01/11/2019 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 Resolved Problems Problem Noted Date Diagnosed Date Resolved Date Aortic valve regurgitation 04/30/2019 0 05/07/2019 Encounters Date Type Department Care Team Description 10/02/2024 1:30 PM CDT Office Visit [facility] - Cardiology [address] [facility], [facility] [address] [place] [address] Guanako Chen MD LV (left ventricular) mural thrombus (Primary Dx) 10/02/2024 Travel from Last 3 Months Immunizations Immunization Administration Dates Next Due MeetMoi primary monoval ent 12+ yr 0.3mL Purple [...] Cigarettes Q uit: 1986 Smokeless Tobacco: Never Tobacco Cessation:Counseling Given: Not Answered Alcohol Use Standard Drinks/Week Comments Yes 1 (1 standard drink = 0.6 oz pur e alcohol) 4 beers per month Sex and Gender Information Value Date Recorded Sex Assigned at Not on file Legal Sex Male 11:52 AM PARK 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 Gender Identity Not on file Sexual Orientation Not on file Last Filed Vital Signs Vital Sign Reading Time Taken Comments Blood Pressure 118/78 10/02/2024 1:13 PM CDT Pulse 78 10/02/2024 1:13 PM CDT Temperature 36.5 C (97.7 F) 08/30/2024 10:06 AM CDT Respiratory Rate 17 08/30/2024 10:06 AM CDT Oxygen Saturation 93% 10/02/2024 1:13 PM CDT Inhaled Oxygen Concentration 35% 05/02/2019 4 :02 AM PARK AIDE Weight 65.8 kg (145 lb) 10/02/2024 1:13 PM CDT Height 177.8 cm (5' 10) 10/02/2024 1:13 PM CDT Body Mass Index 20.81 10/02/2024 1:13 PM CDT Plan of Treatment Upcoming Encounters Date Type Department Care Team (Late st Contact Info) Description 01/08/2025 2:00 PM PARK AIDE Ancillary Procedure [facility] - Echosonography [address] [facility], [address] [id number] 01/08/2025 3:00 PM PARK AIDE Office Visit [facility] - Cardiology [address] [facility], [phone] [place] [address] Lizette Dwyer MD [address] [address] [place] [id number] Health Maintenance Due Date Last Done Comments HEPATITIS C SCREENING 06/05/1964 DTAP/TDAP/TD VACCINES (1 - Tdap) 1965 PNEUMOCOCCAL VACCINE 50+ (1 of 1 - PCV) 1996 ZOSTER VACCINE (1 of 2) 1996 Respiratory Syncytial Virus (RSV) Vaccine Pt: or over 60 yrs (1 - 1-dose 75+ series) 2021 DEPRESSION SCREENING 02/29/2024 MEDICARE AWV CALENDAR YEAR 2024 COVID-19 VACCINE ( season) 2024 12/10/2023, 12/08/2022, 11/27/2021, Additional history exists INFLUENZA VACCINE (#1) 2024 , 12/08/2022, 12/11/2021, Additional history exists HEPATITIS B VACCINE Aged Out No longe [...] A/C/Y/W VACCINE Aged Out No longer eligible based on patient's age to complete this topic Medical Devices Implanted Type Area Education Paraprofessional Device Identifier Shelf Expiration Date Model / Serial / Lot Aortic Vavle Implanted:Qty: 1 on 05/01/2019 by Nas Dueñas MD at [facility] Heart Valve N/A: Heart [employer] 04/29/2020 [id number] / [id number] / [id number] Description:Bioprosthesis-Ao rtic Valve Insurance [facility] MANAGED [place] [address] [place] [address] Advance Directives * Full Code (Latest Code Status on File) Date Activated Date Inactivated Comments 08/15/2024 8:06 AM 08/15/2024 5:41 PM * Full Code Date Activated Date Inactivated Comments 05/01/2019 4:23 PM 05/07/2019 6:27 PM * Full Code Date Activated Date Inactivated Comments 01/11/2019 4:07 PM 01/15/2019 4:16 PM Care Teams Hatch Boss Relationship Specialty Start Date End Date Vishnu Bar MD PCP - General Family Medicine 01/11/19
[2024-12-22 12:08] VITALS: BP 122/69; PULSE 77; RESP 18; TEMP 36.7; O2SAT 98
--- NOTE | 2024-12-22 12:20 | ED.WOUNDLAC ---
HPI - Wound/Laceration General Chief Complaint: Wound/Laceration Stated Complaint: finger lac Time Seen by Provider: 12/22/24 12:07 History of Present Illness HPI narrative: Patient was splitting wood when axe slipped and chopped off the ends of his 3rd and 4th digits on the left. Denying injuries elsewhere; his tetanus is UTD. Related Data Home Medications ?Medication ?Instructions ?Recorded ?Confirmed ?Last Taken ?Type ascorbic acid (vitamin C) 500 mg 500 mg PO DAILY 05/15/20 08/28/24 06/14/23 History tablet aspirin 81 mg chewable tablet 81 mg PO DAILY 05/15/20 08/28/24 06/14/23 History vit C 65 mg-D3 3.15 mcg-vit E 3.35 2 tablet PO DAILY 05/15/20 08/28/24 06/14/23 History mg-zinc 1 mg-elderberry chew tablet (Airborne Vits Zinc Elderberry) Allergies Allergy/AdvReac Type Severity Reaction Status Date / Time No Known Allergies Allergy Verified 12/22/24 12:11 Review of Systems Review of Systems: All systems reviewed & are unremarkable except as noted in HPI and below PMFSH Past Medical History Medical History (Updated 12/22/24 @ 12:50 by Ariana Joseph MD) Anticoagulated on Coumadin (~08/14/24) Left ventricular apical thrombus (~08/14/24) large left ventricular apical thrombus at [facility] office 08/14/2024 with recommendation to go to ER. Facial paresthesia intermittent paresthesias of the left side of the face and left upper extremity Plantar fasciitis of left foot At low risk for fall Colon cancer screening Normal colonoscopy 06/15/2023 with no further screening needed. BMI 21.0-21.9, adult Encounter for prostate cancer screening PSA 2.9 on 08/04/2021. PSA 2.97 on 08/09/2022. PSA 1.6 on 09/30/2023. Trigger finger, left middle finger Rosacea BMI 22.0-22.9, adult Dermatitis (~10/2020) Herpes zoster (~10/2020) right face BMI 23.0-23.9, adult BPH without obstruction/lower urinary tract symptoms treated by urologist PSA 2.9 on 08/04/2021. Chronic anxiety Dysphagia Chronic atrial fibrillation Anemia Traumatic hematoma of right forearm Cellulitis of right forearm Coronary artery disease involving sw[place]om[place] coronary artery of sw[place] heart without angina pectoris Cardiac catheterization 2020 with 40% lesion of the LAD and 60% lesion of the ramus treated medically Essential (primary) hypertension Hx TIA/stroke w/o resid Mixed hyperlipidemia Total cholesterol 132, triglycerides 53, HDL 57, LDL 64 on 08/09/2022. Cholesterol 145, triglycerides 89, HDL 51, LDL 71 on 09/30/2023. Nocturia Peripheral polyneuropathy Chronic bilateral low back pain with bilateral sciatica Chronic neck pain Abnormal fasting glucose Fasting glucose 109 on 08/09/2022 with hemoglobin A1c 6.1. Fasting glucose 105 on 09/30/2023. Seasonal allergic rhinitis Cardiomyopathy ef 38%. ejection fraction 20% on echocardiogram 05/03/2019. Ejection fraction 52% on 04/22/2020. ejection fraction 40-45% January,. Chronic anticoagulation CVA (cerebrovascular accident due to intracerebral hemorrhage) No residual. TIA ? HTN (hypertension) CAD (coronary artery disease) Surgical History Surgical History History of aortic valve replacement History of heart artery stent H/O cardiac catheterization Family History Family History Mother Diabetes mellitus Family history of cardiovascular disease, Onset Age: 59 Father Cerebrovascular accident, Onset Age: 70 Social History Social History Smoking packs per day: 1.5 Smoking cigarettes per day: 30.0 Years smoked: 20 Smoking pack-years: 30.00 Smoking status: Former smoker Tobacco type: cigarettes Alcohol intake: current Drinks per week: 1 Substance use: never Substance use type: does not use Lack of Transportation: No Lack of Food: Never True Current Housing: I Have Housing Concerned About Future Housing: No Difficulty Paying Gas/Electric Bills: No Difficulty Paying for Meds: No Currently Unemployed: No Education: Trade/Vocational Certificate Difficulty w/ Childcare or Family Care: No Living arrangements: with family Gender identity (if verbalized by the patient): Male Spiritual care concerns: No Exam Narrative: EXAMINATION OF ORGAN SYSTEMS/BODY AREAS: Constitutional: Vital signs per nursing GENERAL:[No acute distress, non-toxic appearing.] HEAD: Normal with no signs of head trauma. EYES: EOMI, conjunctiva normal ENT: Hearing grossly intact LUNGS: Nonlabored breathing. HEART: [Regular rate and rhythm] ABD: [Soft], [nontender to palpation] EXT: Amputation to L 4th tip and 3rd SKIN: Amputation to L 4th tip and 3rd NEURO: [Alert and oriented x 3. No gross focal sensory or strength deficits.] PSYCH: Normal affect Course Vital Signs Vital signs: Vital Signs Temperature 98.1 F 12/22/24 12:08 Pulse Rate 77 12/22/24 12:08 Respiratory Rate 18 12/22/24 12:08 Blood Pressure 122/69 12/22/24 12:08 Pulse Oximetry 98 12/22/24 12:08 Oxygen Delivery Room Air 12/22/24 12:08 Temperature 98.1 F 12/22/24 12:08 Pulse Rate 50 L 12/22/24 12:46 Respiratory Rate 15 12/22/24 12:46 Blood Pressure 142/87 H 12/22/24 12:46 Pulse Oximetry 98 12/22/24 12:46 Oxygen Delivery Room Air 12/22/24 12:08 Procedures Nerve Block Nerve Block 1: Nerve block date: 12/22/24 Nerve block time: 13:12 Local Anesthetic: lidocaine 1% and with epi Amount of anesthesia used (mL): 3 Side: left Nerve Blocks: digital Procedure Successful: Yes Patient Tolerated Procedure: well and no complications Nerve Block 2: Nerve block date: 12/22/24 Nerve block time: 13:13 Local Anesthetic: lidocaine 1% and with epi Amount of anesthesia used (mL): 3 Side: left Nerve Blocks: digital Procedure Successful: Yes Patient Tolerated Procedure: well and no complications MDM - Wound/Laceration MDM Narrative Medical decision making narrative: 79M p/w amputation to L 3rd/4th digits. On the 3rd digit amputated almost to MIP, 4th digit at the distal tip. Wounds irrigated and cleaned well here, then covered in wet gauze. Fingertips in cup on ice, will wrap in wet gauze, in cup, on ice. Called [facility], spoke with Hand surgery Dr Brown, case discussed with them, images and xray sent, they were okay with me doing digital block here for comfort so this is done; discussed ER to ER transfer. Discussed with Dr. De Santiago ER who accepts. Cautioned they may not be able to reattach successfully and if they do, it would be a very long process requiring admission, leeches, etc. Pt expresses understanding/agreement. Critical Care Time Critical Care Time Critical Care Time: Yes Total Critical Care Time: 31 Discharge Plan Discharge Clinical Impression: Amputation of finger of left hand Patient Disposition: Acute Care Hospital Condition: Stable Patient Language: Bhutanese Prescriptions: No Action sildenafil (pulm.hypertension) 20 mg tablet See Rx Instructions PO ONCE Qty: 90 11RF Rx Instructions: take up to 5 tablets 1 hour before intercourse as needed PO once; ascorbic acid (vitamin C) 500 mg Tablet 500 mg PO DAILY aspirin [Aspirin Child] 81 mg Tablet,Chewable 81 mg PO DAILY Airborne Vits Zinc Elderberry 65 mg-3.15 mcg- 3.35 mg-1 mg Tablet,Chewable 2 tablet PO DAILY azelastine 137 mcg (0.1 %) aerosol,spray 137 mcg intranasal Q12H Qty: 30 11RF Rx Instructions: administer into each nostril metoprolol succinate 25 mg tablet extended release 24 hr 25 mg PO . q.h.s. Qty: 90 3RF tadalafil [Cialis] 20 mg tablet 20 mg PO DAILY PRN (Reason: sexual activity) Qty: 90 1RF Rx Instructions: administer approximately 30min before sexual activity; do not use more than 1 dose per 24hrs randhawa pay lisinopril 10 mg tablet 10 mg PO . q.a.m. Qty: 30 11RF atorvastatin 40 mg tablet 40 mg PO HS Qty: 90 3RF tamsulosin 0.4 mg capsule 0.4 mg PO DAILY Qty: 90 3RF warfarin 3 mg tablet 3 mg PO DAILY Qty: 30 11RF finasteride [Proscar] 5 mg tablet 5 mg PO DAILY Qty: 30 11RF amoxicillin 500 mg tablet 2,000 mg PO ONCE Qty: 4 0RF Rx Instructions: take 4 tablets by mouth 1 hr prior to dental procedure Follow-up/Referrals: Vishnu Bar MD [Primary Care Provider, Family Practice]
[2024-12-22] MEDS: ONDANSETRON INJ 4 MG/2 ML VIAL IV PUSH (12:25)
[2024-12-22] MEDS: WATER, STERILE FOR INJECTION 10 ML VIAL XX (12:26)
[2024-12-22] MEDS: MORPHINE SULFATE (*CRX) 4 MG/ML INJ 2 MG IV PUSH (12:31)
[2024-12-22 12:46] VITALS: BP 142/87; PULSE 50; RESP 15; O2SAT 98
--- OUTSIDE RECORDS SUMMARY | 2024-12-22 12:47 | XMS_ITS | Clinical Summary ---
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
--- OUTSIDE RECORDS SUMMARY | 2024-12-22 12:47 | XMS_ITS | Encounter Summary ---
Author Organization [facility] Address [address] [facility] [place] [address] Care Team Providers Care Admissions Gate Attendant Name Role Phone Vishnu Bar MD Primary Care Provider [phone] Reason for Visit * Reason Onset Date Comments Appointment 08/29/2024 Encounter Details Date Type Department Care Team (Late st Contact Info) Description 08/29/2024 Telephone [facility] - Cardiology [address] [address] Lizette Dwyer MD [address] [address] Appointment Social History Tobacco Use Types Packs/Day Years Used Date Smoking Tobacco: Former Cigarettes Q uit: 1986 Smokeless Tobacco: Never Alcohol Use Standard Drinks/Week Comments Yes 1 (1 standard drink = 0.6 oz pur e alcohol) 4 beers per month Sex and Gender Information Value Date Recorded Sex Assigned at Not on file 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 Gender Identity Not on file Sexual Orientation [...] INR being 7.1 Patient Call Back number: [phone] documented in this encounter Plan of Treatment Upcoming Encounters Date Type Department Care Team (Late st Contact Info) Description 01/08/2025 2:00 PM 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 Ancillary Procedure [facility] - Echosonography [address] [facility], [address] [address] 01/08/2025 3:00 PM 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 Office Visit [facility] - Cardiology [address], [address] [facility] [place] [address] Lizette Dwyer MD [address] [address] documented as of this encounter Visit Diagnoses Not on filedocumented in this encounter Care Teams Admissions Gate Attendant Relationship Specialty Start Date End Date Vishnu Bar MD PCP - General Family Medicine 01/11/19 documented as of this encounter
--- OUTSIDE RECORDS SUMMARY | 2024-12-22 12:47 | XMS_ITS | Clinical Summary ---
Author Organization [facility] Address [address] [facility] [place] [address] Care Team Providers Care Facility Planner Name Role Phone Vishnu Bar MD Primary Care Provider [phone] Source Comments [facility],non-owned Affiliates and Associated Physician Practices is amultiple site organization consisting of ambulatory clinics and hospital sitesin [place], [place], [place] and [place]. This disclosure is being madepursuant to the Care Everywhere program and may not contain all information available regarding this patient. Last updated 17.[facility] Allergies Active Allergy Reactions Criticality Noted Date [...] Active azelastine (Astelin) 0.1 % nasal spray [place] 1 (one) spray into each nostril 2 times daily Active lisinopril (Prinivil; Zestril) 10 MG tablet Take 1 (one) tablet by mouth every morning 5 Active warfarin (Coumadin) 3 MG tablet Take 1 (one) tablet by mouth once daily 5 Active Active Problems Problem Noted Date Diagnosed Date top spotter (current) use of anticoagulants 2024 History of atrial fibrillation 08/15/2024 Left ventricular apical thrombus 08/15/2024 BPH (benign prostatic hyperplasia) 08/15/2024 Bradycardia 07/28/2022 S/P AVR 07/28/2022 Cardiomyopathy 07/28/2022 Essential hypertension 07/28/2022 Coronary artery disease invo lving caddo coronary artery of [place] heart without angina pectoris 07/28/2022 Elevated troponin 01/12/2019 Intraparenchymal hematoma of brain 01/11/2019 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 Resolved Problems Problem Noted Date Diagnosed Date Resolved Date Aortic valve regurgitation 04/30/2019 0 05/07/2019 Encounters Date Type Department Care Team Description 10/02/2024 1:30 PM CDT Office Visit [facility] - Cardiology [address] [facility], [facility] [address] [place] [address] Guanako Chen MD LV (left ventricular) mural thrombus (Primary Dx) 10/02/2024 Travel from Last 3 Months Immunizations Immunization Administration Dates Next Due Bluespec primary monoval ent 12+ yr 0.3mL Purple [...] on file Legal Sex Male 11:52 AM MANAGER CATEGORY Gender Identity Not on file Sexual Orientation [...] Oxygen Concentration 35% 05/02/2019 4 :02 AM MANAGER CATEGORY Weight 65.8 kg (145 lb) 10/02/2024 1:13 PM CDT Height 177.8 cm (5' 10) 10/02/2024 1:13 PM CDT Body Mass Index 20.81 10/02/2024 1:13 PM CDT Plan of Treatment Upcoming Encounters Date Type Department Care Team (Late st Contact Info) Description 01/08/2025 2:00 PM MANAGER CATEGORY Ancillary Procedure [facility] - Echosonography [address] [facility], [address] [phone] 01/08/2025 3:00 PM MANAGER CATEGORY Office Visit [facility] - Cardiology [address] [facility], [id number] [place] [address] Lizette Dwyer MD [id number] [place], [place] [id number] Health Maintenance Due Date Last Done Comments [...] this topic Medical Devices Implanted Type Area Steel Inspector Device Identifier Shelf Expiration Date Model / Serial / Lot Aortic Vavle Implanted:Qty: 1 on 05/01/2019 by Nas Dueñas MD at [facility] Heart Valve N/A: Heart [employer] 04/29/2020 [id number] / [id number] / [id number] Description:Bioprosthesis-Ao rtic Valve Insurance [facility] MANAGED MEDICARE [place] [place] [address] Advance Directives * Full Code (Latest Code Status on File) Date Activated Date Inactivated Comments 08/15/2024 8:06 AM 08/15/2024 5:41 PM * Full Code Date Activated Date Inactivated Comments 05/01/2019 4:23 PM 05/07/2019 6:27 PM * Full Code Date Activated Date Inactivated Comments 01/11/2019 4:07 PM 01/15/2019 4:16 PM Care Teams Facility Planner Relationship Specialty Start Date End Date Vishnu Bar MD PCP - General Family Medicine 01/11/19
[2024-12-22 13:56] VITALS: BP 153/87; PULSE 84; RESP 15; O2SAT 98
== END 2024-12-22 14:00 | disposition short-term general hospital (02) ==
PROVIDERS: Emergency Provider Emergency Medicine; PCP Family Medicine
DX: S68.125A Partial traumatic metacarpophalangeal amputation of left ring finger, initial encounter (principal); S68.123A Partial traumatic metacarpophalangeal amputation of left middle finger, initial encounter; W45.8XXA Other foreign body or object entering through skin, initial encounter; W27.0XXA Contact with workbench tool, initial encounter; G89.18 Other acute postprocedural pain; Z79.01 Long term (current) use of anticoagulants; Z86.718 Personal history of other venous thrombosis and embolism; I48.20 Chronic atrial fibrillation, unspecified; I10 Essential (primary) hypertension; I25.10 Atherosclerotic heart disease of native coronary artery without angina pectoris; Z87.891 Personal history of nicotine dependence; Z86.73 Personal history of transient ischemic attack (TIA), and cerebral infarction without residual deficits; G62.9 Polyneuropathy, unspecified
CPT/HCPCS: 64450; 64455; 73130; 96374; 96375; 99285; J0690; J2270; J2405

== ENCOUNTER 2024-12-31 08:08 | Outpatient (CLI) | payer MEDICARE, SELFPAY ==
[2024-12-31 09:01] LABS: Hemoglobin A1C 5.6 % (<5.7)
[2024-12-31 09:06] LABS: Alanine Aminotransferase 24 U/L (6-50); Albumin Level 4.2 g/dL (3.5-5.1); Alkaline Phosphatase 53 U/L (38-126); Anion Gap 4 mmol/L (4-12); Aspartate Amino Transferase 27 U/L (17-59); Bilirubin,Total 0.7 mg/dL (0.2-1.3); Blood Urea Nitrogen 25 mg/dL (9-20); Calcium 9.1 mg/dL (8.4-10.2); Carbon Dioxide 28 mmol/L (22-30); Chloride 106 mmol/L (98-107); Cholesterol 148 mg/dL (0-200); Estimated Glomerular Filt Rate > 60; Glucose 112 mg/dL (65-110); HDL Direct 46 mg/dL; Potassium 4.3 mmol/L (3.4-5.0); Sodium 138 mmol/L (137-145); Total Protein 7.2 g/dL (6.3-8.2); Triglycerides 91 mg/dL (<150)
[2024-12-31 09:42] LABS: Thyroid Stimulating Hormone 2.160 uIU/mL (0.465-4.680)
== END 2024-12-31 08:09 | disposition home or self-care (01) ==
LOC: ANHLAB 08:11
PROVIDERS: PCP Family Medicine; Visit Provider Family Medicine
DX: E78.2 Mixed hyperlipidemia (principal); R73.01 Impaired fasting glucose
CPT/HCPCS: 36415; 80048; 80061; 80076; 83036; 84443